=== PATIENT | female | born 1960 | race Caucasian/White ===

== ENCOUNTER 2020-07-06 07:27 | Outpatient (REF) | payer OTHER, SELFPAY ==
[2020-07-06 07:51] LABS: MANUAL DIFF FLAG NO
[2020-07-06 07:55] LABS: Basophils Percent Auto 0.5 % (0-2); Eosinophils Absolute Auto 0.2 X10*3/uL (0.0-0.4); Eosinophils Percent Auto 2.1 % (0-4); Hematocrit 41.5 % (37-47); Hemoglobin 13.3 g/dl (12.0-16.0); Imm Gran Abs Auto 0.03 X10*3/uL (0.00-0.03); Imm Gran Pct Auto 0.4 % (0.0-0.4); Lymphocytes Absolute Auto 3.1 X10*3/uL (1.2-4.9); Lymphocytes Percent Auto 37.3 % (20-40); Mean Corpuscular Hemoglobin 31.6 pg (27.0-33.0); Mean Corpuscular Volume 98.6 fL (80-98); Mean Platelet Volume 8.9 fL (9.4-12.3); Monocytes Absolute Auto 0.6 X10*3/uL (0.1-1.2); Neutrophils Absolute Auto 4.3 X10*3/uL (2.0-8.3); Neutrophils Percent Auto 52.7 % (45-73); Platelet Count 374 X10*3/uL (160-400); Red Blood Count 4.21 X10*6/uL (4.20-5.50); Red Cell Distribution Width 13.2 % (11.0-16.0); White Blood Count 8.2 X10*3/uL (4.8-10.8)
[2020-07-06 07:57] LABS: Glucose Urine UA NEG (NEG); Leukocyte Esterase Urine NEG (NEG); Nitrite Urine NEG (NEG); PH 7.5 (5.0-8.0); Urine Blood 1+ (NEG); Urine Ketones NEG (NEG); Urine Protein NEG (NEG-TRACE)
[2020-07-06 08:00] LABS: Appearance Urine CLEAR; Color Urine YELLOW
[2020-07-06 08:09] LABS: Amorphous Sediment Urine 1+ /LPF; Bacteria Urine 1+ /LPF; Granular Casts Urine 0-2 /LPF; RBC Urine 0-2 /HPF (0); Squamous Epithelial Cell Urine 1+ /LPF; WBC Urine 0 /HPF (0-4)
[2020-07-06 08:19] LABS: Alanine Aminotransferase 28 U/L (0-31); Albumin Level 4.4 g/dL (3.5-5.0); Alkaline Phosphatase 90 U/L (39-117); Anion Gap 11 (12-20); Aspartate Amino Transferase 23 U/L (5-31); Bilirubin Total 0.3 mg/dL (0.0-1.0); Blood Urea Nitrogen 21 mg/dL (9-16); Calcium 9.3 mg/dL (8.4-10.2); Carbon Dioxide 28 mmol/L (22-29); Chloride 103 mmol/L (96-108); Cholesterol 207 mg/dL; Estimated Glomerular Filt Rate > 60; Glucose Fasting 96 mg/dL (60-99); HDL Cholesterol 63 mg/dL; LDL Cholesterol Calculated 126 mg/dl; Sodium 138 mmol/L (135-145); Total Protein 6.8 g/dL (6.5-8.0); Triglycerides 93 mg/dL
[2020-07-06 08:41] LABS: TSH reflex Free T4 1.03 mIU/mL (0.32-4.0)
== END 2020-07-06 07:28 | disposition home or self-care (01) ==
LOC: HO.LAB 07:27
PROVIDERS: Visit Provider Internal Medicine
DX: E78.00 Pure hypercholesterolemia, unspecified (principal); Z00.00 Encounter for general adult medical examination without abnormal findings; F17.200 Nicotine dependence, unspecified, uncomplicated; E55.9 Vitamin D deficiency, unspecified
CPT/HCPCS: 36415; 80053; 80061; 81001; 82306; 84443; 85025

== ENCOUNTER 2021-06-25 09:04 | Outpatient (REF) | payer OTHER, SELFPAY ==
--- NOTE | ~2021-06-25 | US_ITS ---
EXAMINATION: US ABDOMEN COMPLETE CLINICAL INFORMATION: Liver disease, unspecified. COMPARISON: None TECHNIQUE: Real-time imaging of the abdominal viscera. FINDINGS: PANCREAS: Normal. ABDOMINAL AORTA: The proximal, mid, and distal segments are normal in caliber. INFERIOR VENA CAVA: Visualized portions are normal. LIVER: The liver is normal in size. The liver contour is normal. Parenchymal echogenicity is slightly increased. There is a 2 x 1.8 x 2.2 cm cyst in the right lobe of the liver. This is minimally complex with single thin septation and slightly irregularly-shaped. There is no intrahepatic biliary duct dilatation seen. GALLBLADDER: Gallbladder is normal in size. There is a 5 mm hyperechoic echogenic nonmobile nonshadowing density adjacent to the gallbladder wall suggestive of a gallbladder wall polyp. There is a second smaller similar-appearing 3 mm lesion. No definite gallstones are seen. The gallbladder wall does not appear thickened or edematous. There is no pericholecystic fluid. COMMON BILE DUCT: Normal in caliber measuring 0.5 cm in diameter. RIGHT KIDNEY: Normal. No hydronephrosis. No renal calculi or focal parenchymal lesions. The kidney measures 10.9 cm in maximum dimension. LEFT KIDNEY: Normal.. No hydronephrosis. No renal calculi or focal parenchymal lesions. The kidney measures 10.3 cm in maximum dimension. SPLEEN: Normal. The spleen measures 8.3 cm in maximum dimension. FREE FLUID: None. US/US abdomen complete IMPRESSION: Slightly echogenic liver probably representing fatty infiltration. 2 cm minimally complex cyst in the right lobe of the liver. Small gallbladder wall polyps.
== END 2021-06-25 09:05 | disposition home or self-care (01) ==
LOC: HO.US 09:04
PROVIDERS: PCP Internal Medicine; Visit Provider Internal Medicine
DX: K76.9 Liver disease, unspecified (principal)
CPT/HCPCS: 76700

== ENCOUNTER 2021-07-11 06:57 | Outpatient (REF) | payer OTHER, SELFPAY ==
[2021-07-11 07:17] LABS: MANUAL DIFF FLAG NO
[2021-07-11 08:09] LABS: Basophils Absolute Auto 0.1 X10*3/uL (0.0-0.2); Basophils Percent Auto 0.7 % (0-2); Eosinophils Absolute Auto 0.2 X10*3/uL (0.0-0.4); Eosinophils Percent Auto 2.8 % (0-4); Hematocrit 37.8 % (37.0-47.0); Hemoglobin 12.2 g/dl (12.0-16.0); Imm Gran Abs Auto 0.03 X10*3/uL (0.00-0.03); Imm Gran Pct Auto 0.4 % (0.0-0.4); Lymphocytes Absolute Auto 2.5 X10*3/uL (1.2-4.9); Lymphocytes Percent Auto 33.7 % (20-40); Mean Corpuscular HGB Conc 32.3 g/dl (31.0-35.0); Mean Corpuscular Hemoglobin 31.9 pg (27.0-33.0); Mean Corpuscular Volume 98.7 fL (80.0-98.0); Mean Platelet Volume 9.3 fL (9.4-12.3); Monocytes Absolute Auto 0.5 X10*3/uL (0.1-1.2); Neutrophils Absolute Auto 4.2 x10*3/uL (2.0-8.3); Neutrophils Percent Auto 55.4 % (45-73); Platelet Count 362 X10*3/uL (160-400); Red Blood Count 3.83 X10*6/uL (4.20-5.50); Red Cell Distribution Width 12.6 % (11.0-16.0); White Blood Count 7.5 X10*3/uL (4.8-10.8)
[2021-07-11 08:13] LABS: Appearance Urine HAZY; Color Urine YELLOW; Glucose Urine UA NEG (NEG); Leukocyte Esterase Urine NEG (NEG); Nitrite Urine NEG (NEG); UACC Culture Trigger NO; Urine Blood TRACE (NEG); Urine Ketones NEG (NEG); Urine Protein NEG (NEG-TRACE)
[2021-07-11 08:23] LABS: WBC Urine 0-2 /HPF (0-4)
[2021-07-11 08:24] LABS: Squamous Epithelial Cell Urine 1+ /LPF
[2021-07-11 08:30] LABS: Alanine Aminotransferase 18 U/L (0-31); Albumin Level 4.1 g/dL (3.5-5.0); Alkaline Phosphatase 96 U/L (39-117); Anion Gap 13 (12-20); Aspartate Amino Transferase 19 U/L (5-31); Bilirubin Total 0.2 mg/dL (0.0-1.0); Blood Urea Nitrogen 19 mg/dL (9-16); Calcium 9.6 mg/dL (8.4-10.2); Carbon Dioxide 27 mmol/L (22-29); Chloride 107 mmol/L (96-108); Cholesterol 213 mg/dL; Estimated Glomerular Filt Rate > 60; Glucose Fasting 96 mg/dL (60-99); HDL Cholesterol 70 mg/dL; LDL Cholesterol Calculated 127 mg/dl; Potassium 4.8 mmol/L (3.3-5.1); Sodium 142 mmol/L (135-145); Total Protein 6.5 g/dL (6.5-8.0); Triglycerides 81 mg/dL
[2021-07-11 08:53] LABS: Vitamin D 25-OH Total 37.5 ng/mL (>30)
== END 2021-07-11 06:58 | disposition home or self-care (01) ==
LOC: HO.LAB 06:57
PROVIDERS: PCP Internal Medicine; Visit Provider Internal Medicine
DX: Z00.00 Encounter for general adult medical examination without abnormal findings (principal); E78.00 Pure hypercholesterolemia, unspecified; E55.9 Vitamin D deficiency, unspecified
CPT/HCPCS: 36415; 80053; 80061; 81001; 82306; 84443; 85025

== ENCOUNTER 2021-07-18 16:24 | Outpatient (REF) | payer OTHER, SELFPAY ==
--- NOTE | ~2021-07-18 | XR_ITS ---
EXAMINATION: XR HAND, RIGHT CLINICAL INFORMATION: Pain in the fingers COMPARISON: None TECHNIQUE: PA, lateral, and oblique views of the right hand. FINDINGS: There is no fracture or dislocation. Alignment is maintained. There is mild joint space narrowing at the first interphalangeal joint with prominent osteophytes. Small osteophytes also noted at the second and third metacarpophalangeal joints. The soft tissues appear unremarkable. XR/XR hand RT 2V IMPRESSION: No acute abnormality. Degenerative changes noted at the first interphalangeal joint and second and third metacarpophalangeal joints.
== END 2021-07-18 16:25 | disposition home or self-care (01) ==
LOC: HO.XRAY 16:24
PROVIDERS: PCP Internal Medicine; Visit Provider Nurse Practitioner Family
DX: M79.644 Pain in right finger(s) (principal)
CPT/HCPCS: 73120

== ENCOUNTER 2022-10-24 07:36 | Outpatient (REF) | payer OTHER, SELFPAY ==
[2022-10-24 07:48] LABS: MANUAL DIFF FLAG NO
[2022-10-24 07:59] LABS: Basophils Absolute Auto 0.1 X10*3/uL (0.0-0.2); Basophils Percent Auto 0.5 % (0-2); Eosinophils Absolute Auto 0.2 X10*3/uL (0.0-0.4); Eosinophils Percent Auto 1.9 % (0-4); Hematocrit 43.5 % (37.0-47.0); Imm Gran Abs Auto 0.03 X10*3/uL (0.00-0.03); Imm Gran Pct Auto 0.3 % (0.0-0.4); Lymphocytes Percent Auto 30.6 % (20-40); Mean Corpuscular HGB Conc 32.2 g/dl (31.0-35.0); Mean Corpuscular Hemoglobin 30.8 pg (27.0-33.0); Mean Corpuscular Volume 95.8 fL (80.0-98.0); Mean Platelet Volume 9.1 fL (9.4-12.3); Monocytes Absolute Auto 0.5 X10*3/uL (0.1-1.2); Monocytes Percent Auto 5.2 % (2-11); Neutrophils Percent Auto 61.5 % (45-73); Platelet Count 379 X10*3/uL (160-400); Red Blood Count 4.54 X10*6/uL (4.20-5.50); Red Cell Distribution Width 12.9 % (11.0-16.0); White Blood Count 9.8 X10*3/uL (4.8-10.8)
[2022-10-24 08:18] LABS: Appearance Urine Cloudy; Color Urine Yellow; Glucose Urine UA Negative (Negative); Leukocyte Esterase Urine Moderate (2+) (Negative); Nitrite Urine Negative (Negative); Specific Gravity - Urine 1.025 (1.005-1.025); UMIC TRIGGER UACC YES; Urine Blood Small (1+) (Negative); Urine Ketones Trace mg/dL (Negative); Urine Protein Negative (Neg-Trace)
[2022-10-24 08:33] LABS: Bacteria Urine Trace (None Seen); Hyaline Casts Urine 0-2 /LPF (0-2); UACC Culture Trigger YES; WBC Urine 21-50 /HPF (0-5)
[2022-10-24 08:54] LABS: Alanine Aminotransferase 22 U/L (0-31); Albumin Level 4.4 g/dL (3.5-5.0); Alkaline Phosphatase 91 U/L (39-117); Anion Gap 13 (12-20); Aspartate Amino Transferase 21 U/L (5-31); Bilirubin Total 0.6 mg/dL (0.0-1.0); Blood Urea Nitrogen 26 mg/dL (9-16); C Reactive Protein < 0.10 mg/dL (< or = 0.50); Calcium 9.9 mg/dL (8.4-10.2); Carbon Dioxide 28 mmol/L (22-29); Chloride 104 mmol/L (96-108); Cholesterol 257 mg/dL; Estimated Glomerular Filt Rate > 60; Glucose Fasting 100 mg/dL (60-99); HDL Cholesterol 71 mg/dL; LDL Cholesterol Calculated 164 mg/dl; Potassium 4.3 mmol/L (3.3-5.1); Sodium 141 mmol/L (135-145); Triglycerides 114 mg/dL
[2022-10-24 09:12] LABS: TSH reflex Free T4 1.14 uIU/mL (0.32-4.0); Vitamin D 25-OH Total 39.8 ng/mL (>30)
[2022-10-24 09:16] LABS: Erythrocyte Sedimentation Rate 18 MM/HR (0-20)
== END 2022-10-24 07:37 | disposition home or self-care (01) ==
LOC: HO.LAB 07:36
PROVIDERS: PCP Internal Medicine; Visit Provider Internal Medicine
DX: Z00.00 Encounter for general adult medical examination without abnormal findings (principal); M51.36 Other intervertebral disc degeneration, lumbar region; E55.9 Vitamin D deficiency, unspecified; M79.7 Fibromyalgia; E78.00 Pure hypercholesterolemia, unspecified; R82.90 Unspecified abnormal findings in urine
CPT/HCPCS: 36415; 80053; 80061; 81001; 82306; 84443; 85025; 85652; 86140; 87086

== ENCOUNTER 2022-12-30 10:55 | Outpatient (REF) | payer OTHER, SELFPAY | END 2022-12-30 10:56 | disposition home or self-care (01) | LOC: HO.SH 10:55 | PROVIDERS: Visit Provider Internal Medicine | DX: Z01.118 Encounter for examination of ears and hearing with other abnormal findings (principal); H90.3 Sensorineural hearing loss, bilateral | CPT/HCPCS: 92557; 92567; 92700 ==

== ENCOUNTER 2023-10-08 07:41 | Outpatient (REF) | payer OTHER, SELFPAY ==
[2023-10-08 08:08] LABS: MANUAL DIFF FLAG NO
[2023-10-08 08:18] LABS: Basophils Percent Auto 0.4 % (0-2); Eosinophils Absolute Auto 0.2 X10*3/uL (0.0-0.4); Eosinophils Percent Auto 1.8 % (0-4); Hematocrit 41.8 % (37.0-47.0); Hemoglobin 13.5 g/dl (12.0-16.0); Imm Gran Abs Auto 0.03 X10*3/uL (0.00-0.03); Imm Gran Pct Auto 0.4 % (0.0-0.4); Lymphocytes Absolute Auto 3.1 X10*3/uL (1.2-4.9); Lymphocytes Percent Auto 37.6 % (20-40); Mean Corpuscular HGB Conc 32.3 g/dl (31.0-35.0); Mean Corpuscular Hemoglobin 31.7 pg (27.0-33.0); Mean Corpuscular Volume 98.1 fL (80.0-98.0); Mean Platelet Volume 8.7 fL (9.4-12.3); Monocytes Absolute Auto 0.5 X10*3/uL (0.1-1.2); Monocytes Percent Auto 5.8 % (2-11); Neutrophils Absolute Auto 4.5 x10*3/uL (2.0-8.3); Platelet Count 385 X10*3/uL (160-400); Red Blood Count 4.26 X10*6/uL (4.20-5.50); Red Cell Distribution Width 13.1 % (11.0-16.0); White Blood Count 8.3 X10*3/uL (4.8-10.8)
[2023-10-08 09:00] LABS: Appearance Urine Clear; Color Urine Yellow; Glucose Urine UA 100 mg/dL (Negative); Leukocyte Esterase Urine Negative (Negative); Nitrite Urine Negative (Negative); Specific Gravity - Urine >= 1.030 (1.005-1.025); UMIC TRIGGER UACC YES; Urine Blood Small (1+) (Negative); Urine Ketones Negative (Negative); Urine Protein 30 (1+) mg/dL (Neg-Trace)
[2023-10-08 09:13] LABS: Alanine Aminotransferase 17 U/L (0-31); Albumin Level 4.4 g/dL (3.5-5.0); Alkaline Phosphatase 84 U/L (39-117); Anion Gap 13 (12-20); Aspartate Amino Transferase 19 U/L (5-31); Bilirubin Total 0.5 mg/dL (0.0-1.0); Blood Urea Nitrogen 20 mg/dL (9-16); Calcium 10.2 mg/dL (8.4-10.2); Carbon Dioxide 27 mmol/L (22-29); Chloride 107 mmol/L (96-108); Cholesterol 229 mg/dL (<200); Estimated Glomerular Filt Rate > 60; Glucose Fasting 104 mg/dL (60-99); HDL Cholesterol 72 mg/dL (>40); LDL Cholesterol Calculated 136 mg/dL (<100); Potassium 4.4 mmol/L (3.3-5.1); Sodium 143 mmol/L (135-145); Total Protein 7.4 g/dL (6.5-8.0); Triglycerides 106 mg/dL (<150)
[2023-10-08 09:17] LABS: TSH reflex Free T4 1.15 uIU/mL (0.32-4.0); Vitamin D 25-OH Total 50.8 ng/mL (>30)
[2023-10-08 09:50] LABS: Bacteria Urine None Seen (None Seen); WBC Urine 0-5 /HPF (0-5)
[2023-10-08 09:51] LABS: Hyaline Casts Urine 0-2 /LPF (0-2)
== END 2023-10-08 07:42 | disposition home or self-care (01) ==
LOC: HO.LAB 07:41
PROVIDERS: PCP Internal Medicine; Visit Provider Internal Medicine
DX: Z00.00 Encounter for general adult medical examination without abnormal findings (principal); E78.00 Pure hypercholesterolemia, unspecified; E55.9 Vitamin D deficiency, unspecified; I10 Essential (primary) hypertension
CPT/HCPCS: 36415; 80053; 80061; 81001; 81003; 82306; 84443; 85025

== ENCOUNTER 2023-10-08 12:16 | Outpatient (AMB) | payer OTHER, SELFPAY ==
--- NOTE | 2023-10-08 12:22 | A.OFFPC_ITS ---
Vital Signs 10/08/23 12:23 10/08/23 12:30 Height 5 ft 6 in Weight 127 lb 8 oz BMI 20.6 BP 158/90 H 150/92 H Blood Pressure Location Lt brachial Lt brachial Position Sitting Sitting Respiration 17 Pulse 88 Pulse Source Pulse Oximeter Pulse Oximetry (%) 100 Oxygen Delivery Method Room Air Intake Visit Reasons: P.E Intake Note: Patient is here today for a physical. Dimensional Inspector Required: No Accompanied by: Self / Same As Patient Allergies No Known Allergies Allergy (Verified 10/08/23 12:45) Medication List - Last Reconciled 10/08/23 by Jose Santamaria MD lorazepam 0.5 mg PO BEDTIME PRN 30 days Tobacco use date assessed: 10/08/23 Fall risk assessment: No Falls in past year Last assessed Fall Risk: 10/08/23 Dental Screening Dental Screen Date: 10/08/23 Did you have a dental visit in the last 12 months?: Yes Did you have a dental problem in the last 6 months where you did not have access to dental care?: No Was dental information given to patient?: Patient has dentist HPI P.E HPI Details Patient comes in today for her annual physical examination States that she feels okay She denies any headaches or dizziness Denies any chest pains, no SOB No nausea/vomiting, no abdominal pain No change in bowel habits noted Denies any acute urinary symptoms States that her lower back has been feeling a lot better since she started seeing a chiropractor (Dr. Ward Bright) in [place], [place] about a year ago Needs her Lorazepam Rx refilled - states that she still has a lot of anxiety that is mostly due to her 's declining physical health and mental faculties She is also still taking care of her elderly father, whose cognition is also declining and taking care of him is becoming more and more challenging Had her follow up labs done earlier this morning - to discuss her results States that she is up-to-date with her annual mammogram (done at [facility] last year in December 2022) She is scheduled to see her sewing machine maintenance mechanic in December 2023 for her yearly exam and pap smear She last had her colonoscopy with Dr. Pollard in August 2018 and is now due for repeat colonoscopy (5 years) [facility] Medical History Anxiety Vitamin D deficiency Lumbar degenerative disc disease Pure hypercholesterolemia Surgical History Back pain with history of spinal surgery History of eye surgery History of surgery History of colonoscopy with polypectomy Neck pain with history of cervical spinal surgery History of microdiscectomy Family History Father No problems noted. Mother No problems noted. Other Substance abuse Social History Housing: House Alcohol intake: current Alcohol intake frequency: holidays/special occasions only Patient Tobacco Use Status: Former Tobacco user Cigarettes Per Day: 6 e-Cigarette/Vaping Use: Never Used Second Hand Smoke Exposure: Yes service: No Current occupational status: employed Cognitive needs: No Hearing needs: No Vision needs: Yes (Glasses) Questionnaire PHQ-9 Over the last 2 weeks, how often have you been bothered by any of the following problems? 1. Little interest or pleasure in doing things: not at all 2. Feeling down, depressed, or hopeless: not at all 3. Trouble falling or staying asleep, or sleeping too much: not at all 4. Feeling tired or having little energy: not at all 5. Poor appetite or overeating: not at all 6. Feeling bad about yourself - or that you are a failure or have let yourself or your family down: not at all 7. Trouble concentrating on things, such as reading the newspaper or watching television: not at all 8. Moving or speaking so slowly that other people could have noticed. Or the opposite - being so fidgety or restless that you have been moving around a lot more than usual: not at all 9. Thoughts that you would be better off or of hurting yourself in some way: not at all Total score: 0 Depression Screening Interpretation: Negative Depression Screening Done: Yes 29182 - PHQ-9 Billing: Yes Source: Developed by Drs. Nba Vasquez, Lore Christy, Toni Hinojosa and colleagues, with an educational cheryl from [employer]. Thrive Questionnaire Date Thrive assessed: 10/08/23 I am a: Patient What is your living situation today?: I have a steady place to live Within the past 12 months, did the food you bought not last and you didn't have the money to get more?: Never true Within the past 12 months, did you worry whether your food would run out before you got money to buy more?: Never true Do you have trouble paying for medicines?: No Do you have trouble getting transportation to medical appointments?: No Do you have trouble paying your heating and electricity bill?: No Do you have trouble taking care of your child, family member or friend?: No Do you have trouble with day-to-day activities such as bathing, preparing meals, shopping, managing finances, etc.?: No Are you currently unemployed and looking for a job?: No Are you interested in more education?: No Please select the resources that you would like help with: None Currently or been in a relationship where the following occur: no concerns reported THRIVE Score: 0 AUDIT C Alcohol Use Questionnaire (AUDIT-C) 1. How often do you have a drink containing alcohol?: Never 3. How often do you have six or more drinks on one occasion?: Never Total Score: 0 Score Reviewed/Action Taken: Yes ERIC-7 AMB Questionnaire ERIC-7 Date ERIC - 7 assessed: 10/08/23 Feeling nervous, anxious, or on edge: 3 = Nearly every day Not being able to stop or control worryin = Several days Worrying too much about different things: 3 = Nearly every day Trouble relaxin = Nearly every day Being so restless that it is hard to sit still: 1 = Several days Becoming easily annoyed or irritable: 0 = Not at all Feeling afraid as if something awful might happen: 1 = Several days Total ERIC-7 score (0-4 normal; 5-9 mild; 10-14 moderate; 15-21 severe): 12 Source: Developed by Drs. Nba Vasquez, Lore Christy, Toni Hinojosa and colleagues, with an educational cheryl from [employer]. ERIC-7 Assessment Billing ERIC-7 Assessment Tool: ERIC-7 Assessment 10559 Review of Systems Const Denies chills, Denies fatigue, Denies fever(s), Denies headache(s) and Denies malaise Eyes Denies blurry vision, Denies change in vision, Denies irritation and Denies itchy eyes ENT Denies dysphagia, Denies dizziness, Denies otalgia, Denies headache(s), Denies nasal congestion, Denies neck pain, Denies odynophagia, Denies sinus pain and Denies sore throat Card Denies chest pain, Denies rapid heart rate, Denies irregular heart rhythm, Denies palpitations and Denies dyspnea Resp Denies chest congestion, Denies cough, Denies dyspnea and Denies wheezing GI Denies abdominal pain, Denies bloating, Denies constipation, Denies dysphagia, Denies heartburn, Denies diarrhea, Denies nausea, Denies odynophagia and Denies vomiting Denies hematuria, Denies urinary frequency, Denies dysuria, Denies urinary incontinence and Denies urinary urgency Musc Reports back pain (on and off), Denies arthralgias, Denies joint swelling, Denies muscle weakness and Denies neck pain Skin/Breast Denies breast pain, Denies breast mass, Denies change in pigmentation, Denies lesions, Denies rash and Denies unusual bruising Neuro Denies dizziness, Denies headache(s) and Denies paresthesias Psych Reports anxiety (increasing lately) and Denies depression Endo Denies fatigue and Denies palpitations Bakari/Lymph Denies easy bruising Aller/Immun Denies itchy eyes and Denies wheezing Physical exam (Primary Care) Vital Signs: Last Vital Signs Pulse 88 10/08/23 12:23 Resp 17 10/08/23 12:23 BP 150/92 H 10/08/23 12:30 Pulse Ox 100 10/08/23 12:23 Oxygen Delivery Method Room Air 10/08/23 12:23 BMI result Body Mass Index 20.6 Tobacco/Smoking Status: Tobacco use Status Tobacco use date assessed 10/08/23 10/08/23 12:29 Patient Tobacco Use Status Former Tobacco user 10/08/23 12:29 e-Cigarette/Vaping Use Never Used 10/08/23 12:29 PHQ-9: PHQ-9 Score PHQ-9: Total score 0 10/08/23 12:30 Depression Screening Interpretation: Negative Thrive Assessment: Date of Thrive Assessment Date Thrive assessed 10/08/23 10/08/23 12:29 Currently or been in a relationship where the following occur: no concerns reported Const General: no acute distress, alert and awake Orientation/consciousness: patient oriented x3 HENMT Head: Yes normocephalic and Yes atraumatic Ears: external ears normal, TM's normal bilaterally and EAC's normal General nose exam: No nasal discharge present Face and sinus: Yes normal facial exam and Yes sinuses nontender Teeth and gingiva: dentition normal Throat: Yes posterior oropharynx normal and Yes tonsils normal (no TP congestion) Eyes Eyelids: Yes eyelids normal Conjunctivae: conjunctivae normal Pupils: Equal, round and reactive pupils present EOM: EOMs intact bilaterally Neck Neck: Yes no lymphadenopathy and Yes supple Thyroid: Thyroid normal Resp Auscultation: clear to auscultation bilaterally, no rales and no wheezes Cardio Rate: regular rate Rhythm: regular rhythm Heart sounds: no murmurs GI Palpation (GI): Soft to palpation, nontender and No hepatosplenomegaly present Auscultation: normal bowel sounds General: Yes no CVA tenderness Back/Spine/Pelvis Back: no CVA tenderness Thoracic/Lumbar Spine: lumbar spinal tenderness (mild) Skin Lesions: no lesions Rashes: no rashes Neuro General: patient oriented x3, moves all extremities, no focal motor deficits and CN's II-XI intact bilaterally Cranial nerves: Yes Equal, round and reactive pupils present Cognition (Neuro): normal cognition Gait exam (Neuro): Normal gait present Extrem General: Yes no clubbing, cyanosis or edema Results Reviewed Results Reviewed: Laboratory Tests 10/24/22 10/24/22 10/24/22 07:47 07:47 07:47 WBC Hgb Hct Plt Count Sodium Potassium Creatinine Estimated GFR Fasting Glucose Calcium AST ALT Triglycerides 114 Cholesterol LDL Cholesterol, Calc 164 HDL Cholesterol 71 25-OH Vitamin D Total TSH Ur Specific [place] Urine Protein Urine Glucose (UA) Urine Blood Urine Nitrite Ur Leukocyte Esterase 10/24/22 10/08/23 10/08/23 07:47 08:06 08:06 WBC 8.3 Hgb 13.5 Hct 41.8 Plt Count 385 Sodium 143 Potassium 4.4 Creatinine 0.85 Estimated GFR > 60 Fasting Glucose 104 H Calcium 10.2 AST 19 ALT 17 Triglycerides 106 Cholesterol 257 229 H LDL Cholesterol, Calc 136 H HDL Cholesterol 25-OH Vitamin D Total TSH Ur Specific [place] Urine Protein Urine Glucose (UA) Urine Blood Urine Nitrite Ur Leukocyte Esterase 10/08/23 10/08/23 10/08/23 08:06 08:06 08:10 WBC Hgb Hct Plt Count Sodium Potassium Creatinine Estimated GFR Fasting Glucose Calcium AST ALT Triglycerides Cholesterol LDL Cholesterol, Calc HDL Cholesterol 72 25-OH Vitamin D Total 50.8 TSH 1.15 Ur Specific [place] >= 1.030 H Urine Protein 30 (1+) H Urine Glucose (UA) Urine Blood Urine Nitrite Ur Leukocyte Esterase 10/08/23 08:10 WBC Hgb Hct Plt Count Sodium Potassium Creatinine Estimated GFR Fasting Glucose Calcium AST ALT Triglycerides Cholesterol LDL Cholesterol, Calc HDL Cholesterol 25-OH Vitamin D Total TSH Ur Specific [place] Urine Protein Urine Glucose (UA) 100 H Urine Blood Small (1+) H Urine Nitrite Negative Ur Leukocyte Esterase Negative Assessment and Plan Assessment & Plan (1) Annual physical exam: Code(s): Z00.00 - Encounter for general adult medical examination without abnormal findings Plan: Results of her labs done earlier this morning reviewed and discussed with patient She is up-to-date with her annual mammogram (last done at [facility] in December 2022) Is scheduled to see her sewing machine maintenance mechanic in December 2023 for her yearly exam She is now due for repeat colonoscopy (2) Pure hypercholesterolemia: Code(s): E78.00 - Pure hypercholesterolemia, unspecified Plan: She is advised that her cholesterol levels have improved significantly from previous but they are still elevated and needs to continue improving Reinforced low-cholesterol diet Will recheck her fasting lipids and labs in 6 months for follow up (3) Elevated blood pressure reading: Code(s): R03.0 - Elevated blood-pressure reading, without diagnosis of hypertension Plan: Her blood pressure is again high today; her BP was normal/much better controlled back in January 2023 Advised again that her elevated BP readings every now and then are most likely multifactorial, including due to her pain/sciatica and anxiety/stress Reinforced low sodium diet Patient is reminded to continue monitoring her blood pressure regularly - goal is systolic BP of 120 mm or less (4) Lumbar degenerative disc disease: Comment: S/P lumbar spine surgery with Dr. Garcia in 07/2012 Code(s): M51.36 - Other intervertebral disc degeneration, lumbar region Plan: Reinforced activity and weight lifting restrictions She was previously sent for a repeat lumbar spine MRI due to her increasing pain (right sciatica) and radiation of pain down her right leg but this was declined by insurance States that she has been seeing her chiropractor (Dr. Ward Bright) in [place], [place] for about a year now and he has helped her a lot with her lower back pain - states that her lower back has not really been bothering her too much lately (5) Right lumbar radiculopathy: Code(s): M54.16 - Radiculopathy, lumbar region Plan: Repeat MRI of the lumbar spine ordered recently was declined by insurance; states that her low back pain and radicular symptoms seem to have subsided a lot recently so she does not wish to pursue this further at this time Will consider referring her back to Neurosurgery only if her back symptoms start flaring up uncontrollably again (6) 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: Code(s): M47.812 - Spondylosis without myelopathy or radiculopathy, cervical region Plan: States that her neck pain has also been mostly manageable and she does not need any interventions at this time (7) Osteoarthritis of right hand: Code(s): M19.041 - Primary osteoarthritis, right hand Qualifiers: Osteoarthritis type: primary Qualified Code(s): M19.041 - Primary osteoarthritis, right hand Plan: Right hand x-rays done in July 2021 revealed (+) OA changes in the right hand and fingers Follow up with orthopedics as scheduled (8) Vitamin D deficiency: Code(s): E55.9 - Vitamin D deficiency, unspecified Plan: Corrected on her recent labs (9) Anxiety: Code(s): F41.9 - Anxiety disorder, unspecified Plan: Continue Lorazepam 0.5 mg Q HS PRN - Rx refilled Was on Bupropion XL 150 mg Q AM in the past but she took herself off the Rx when she felt that the medication was making her feel angry often - reports no significant increase or worsening of her anxiety since coming off the Rx (10) Colon cancer screening: Code(s): Z12.11 - Encounter for screening for malignant neoplasm of colon Plan: Will refer her back to GI for repeat colonoscopy Plan Follow up in 6 months Orders: Orders Comprehensive [place]. 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
[2023-10-08 12:23] VITALS: BP 158/90; PULSE 88; RESP 17; O2SAT 100; BMI 20.6
[2023-10-08 12:30] VITALS: BP 150/92
== END 2023-10-08 13:08 | disposition home or self-care (01) ==
PROVIDERS: PCP Internal Medicine; Visit Provider Internal Medicine
DX: Z00.00 Encounter for general adult medical examination without abnormal findings (principal); E78.00 Pure hypercholesterolemia, unspecified; R03.0 Elevated blood-pressure reading, without diagnosis of hypertension; M51.36 Other intervertebral disc degeneration, lumbar region; M54.16 Radiculopathy, lumbar region; M47.812 Spondylosis without myelopathy or radiculopathy, cervical region; M19.041 Primary osteoarthritis, right hand; E55.9 Vitamin D deficiency, unspecified; F41.9 Anxiety disorder, unspecified; Z12.11 Encounter for screening for malignant neoplasm of colon
CPT/HCPCS: 99396

== ENCOUNTER → 2024-01-27 08:24 | Outpatient (BNVA) | payer MEDICARE, SELFPAY | PROVIDERS: PCP Internal Medicine; Visit Provider Nurse Practitioner ==

== ENCOUNTER 2024-04-20 05:56 | Outpatient (REF) | payer MEDICARE, SELFPAY ==
[2024-04-20 07:51] LABS: Alanine Aminotransferase 16 U/L (0-31); Albumin Level 4.6 g/dL (3.5-5.0); Alkaline Phosphatase 80 U/L (39-117); Anion Gap 13 (12-20); Aspartate Amino Transferase 19 U/L (5-31); Bilirubin Total 0.4 mg/dL (0.0-1.0); Blood Urea Nitrogen 22 mg/dL (9-16); Calcium 10.5 mg/dL (8.4-10.2); Carbon Dioxide 28 mmol/L (22-29); Chloride 107 mmol/L (96-108); Cholesterol 206 mg/dL (<200); Estimated Glomerular Filt Rate > 60; Glucose Fasting 100 mg/dL (60-99); HDL Cholesterol 74 mg/dL (>40); LDL Cholesterol Calculated 110 mg/dL (<100); Potassium 4.7 mmol/L (3.3-5.1); Sodium 143 mmol/L (135-145); Total Protein 7.4 g/dL (6.5-8.0); Triglycerides 113 mg/dL (<150)
[2024-04-20 08:09] LABS: Appearance Urine Clear; Color Urine Yellow; Glucose Urine UA Negative (Negative); Leukocyte Esterase Urine Moderate (2+) (Negative); Nitrite Urine Negative (Negative); PH 5.5 (5.0-9.0); Specific Gravity - Urine 1.025 (1.005-1.025); UMIC TRIGGER UACC YES; Urine Blood Small (1+) (Negative); Urine Ketones 15 mg/dL (Negative); Urine Protein Trace mg/dL (Neg-Trace)
[2024-04-20 08:14] LABS: Bacteria Urine None Seen (None Seen); Hyaline Casts Urine 0-2 /LPF (0-2); UACC Culture Trigger YES
== END 2024-04-20 05:57 | disposition home or self-care (01) ==
LOC: HO.LAB 05:56
PROVIDERS: PCP Internal Medicine; Visit Provider Internal Medicine
DX: E78.00 Pure hypercholesterolemia, unspecified (principal); R30.0 Dysuria
CPT/HCPCS: 36415; 80053; 80061; 81001; 81003; 87086

== ENCOUNTER 2024-04-21 09:37 | Outpatient (AMB) | payer MEDICARE, SELFPAY ==
[2024-04-21 10:01] VITALS: BP 148/86; PULSE 66; O2SAT 98; BMI 20.7
--- NOTE | 2024-04-21 10:01 | MHC.PC.OV ---
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 Accompanied by: Self / Same As Patient Allergies No Known Allergies Allergy (Verified 04/21/24 10:02) Tobacco use date assessed: 04/21/24 Last assessed Fall Risk: 04/21/24 Dental Screening Dental Screen Date: 04/21/24 HPI hyperlipidemia, anxiety HPI Details Patient comes in today for her follow up visit States that she hurt and twisted her left knee a couple of months ago Recalls that her knee swelled up initially but this gradually subsided over a few days States that the pain in her knee has also been slowly decreasing but she is concerned now that it has been about 2 months since she got hurt and is currently still experiencing recurrent pain in her knee, especially with weight-bearing and when she is walking States that she has been icing her knee daily at night and has been wearing a compression sleeve on her knee during the day, which she states have been helping Sttaes that she feels okay otherwise She denies any headaches or dizziness Denies any chest pains, no SOB No nausea/vomiting, no abdominal pain No change in bowel habits noted States that her BP was at 120/80 mm earlier this morning and at 116/72 mm just before she left the house to get here It is again up at 148/86 mm when she was triaged a while ago for her appointment today [facility] Medical History (Updated 04/21/24 @ 12:21 by Jose Santamaria MD) White coat syndrome without diagnosis of hypertension Anxiety Vitamin D deficiency Lumbar degenerative disc disease Pure hypercholesterolemia Surgical History Back pain with history of spinal surgery History of eye surgery History of surgery History of colonoscopy with polypectomy Neck pain with history of cervical spinal surgery History of microdiscectomy Family History Father No problems noted. Mother No problems noted. Other Substance abuse Social History Housing: House Alcohol intake: current Alcohol intake frequency: holidays/special occasions only Patient Tobacco Use Status: Former Tobacco user Cigarettes Per Day: 6 e-Cigarette/Vaping Use: Never Used Second Hand Smoke Exposure: Yes service: No Current occupational status: employed Cognitive needs: No Hearing needs: No Vision needs: Yes (Glasses) Questionnaire PHQ-9 Over the last 2 weeks, how often have you been bothered by any of the following problems? 1. Little interest or pleasure in doing things: not at all 2. Feeling down, depressed, or hopeless: not at all 3. Trouble falling or staying asleep, or sleeping too much: not at all 4. Feeling tired or having little energy: not at all 5. Poor appetite or overeating: not at all 6. Feeling bad about yourself - or that you are a failure or have let yourself or your family down: not at all 7. Trouble concentrating on things, such as reading the newspaper or watching television: not at all 8. Moving or speaking so slowly that other people could have noticed. Or the opposite - being so fidgety or restless that you have been moving around a lot more than usual: not at all 9. Thoughts that you would be better off or of hurting yourself in some way: not at all Total score: 0 Depression Screening Interpretation: Negative Depression Screening Done: Yes 89909 - PHQ-9 Billing: Yes Source: Developed by Drs. Nba Vasquez, Lore Christy, Toni Hinojosa and colleagues, with an educational cheryl from [email or web address]. Thrive Questionnaire Date Thrive assessed: 04/21/24 I am a: Patient What is your living situation today?: I have a steady place to live Within the past 12 months, did the food you bought not last and you didn't have the money to get more?: Never true Within the past 12 months, did you worry whether your food would run out before you got money to buy more?: Never true Do you have trouble paying for medicines?: No Do you have trouble getting transportation to medical appointments?: No Do you have trouble paying your heating and electricity bill?: No Do you have trouble taking care of your child, family member or friend?: No Do you have trouble with day-to-day activities such as bathing, preparing meals, shopping, managing finances, etc.?: No Are you currently unemployed and looking for a job?: No Are you interested in more education?: No Please select the resources that you would like help with: None Currently or been in a relationship where the following occur: No concerns reported THRIVE Score: 0 AUDIT C Alcohol Use Questionnaire (AUDIT-C) 1. How often do you have a drink containing alcohol?: Never 3. How often do you have six or more drinks on one occasion?: Never Total Score: 0 Score Reviewed/Action Taken: Yes ERIC-7 AMB Questionnaire ERIC-7 Date ERIC - 7 assessed: 04/21/24 Feeling nervous, anxious, or on edge: 3 = Nearly every day Not being able to stop or control worryin = Several days Worrying too much about different things: 3 = Nearly every day Trouble relaxin = Nearly every day Being so restless that it is hard to sit still: 1 = Several days Becoming easily annoyed or irritable: 0 = Not at all Feeling afraid as if something awful might happen: 1 = Several days Total ERIC-7 score (0-4 normal; 5-9 mild; 10-14 moderate; 15-21 severe): 12 Source: Developed by Drs. Nba Vasquez, Lore Christy, Toni Hinojosa and colleagues, with an educational cheryl from [email or web address]. ERIC-7 Assessment Billing ERIC-7 Assessment Tool: ERIC-7 Assessment 84875 Review of Systems Const Denies chills, Denies difficulty sleeping, Denies fatigue, Denies fever(s) and Denies headache(s) ENT Denies dysphagia, Denies dizziness, Denies otalgia, Denies headache(s), Denies neck pain, Denies odynophagia and Denies sore throat Card Denies chest pain, Denies palpitations and Denies dyspnea Resp Denies cough and Denies dyspnea GI Denies abdominal pain, Denies constipation, Denies dysphagia, Denies heartburn, Denies diarrhea, Denies nausea, Denies odynophagia and Denies vomiting Denies difficulty voiding, Denies nocturia, Denies dysuria and Denies urinary urgency Musc Denies back pain, Reports arthralgias (left knee - see HPI) and Denies neck pain Neuro Denies dizziness and Denies headache(s) Psych Reports anxiety (better controlled ) and Denies depression Endo Denies fatigue and Denies palpitations Physical exam (Primary Care) Vital Signs: Last Vital Signs Pulse 66 04/21/24 10:01 BP 148/86 H 04/21/24 10:01 Pulse Ox 98 04/21/24 10:01 Oxygen Delivery Method Room Air 04/21/24 10:01 BMI result Body Mass Index 20.7 Tobacco/Smoking Status: Tobacco use Status Tobacco use date assessed 04/21/24 04/21/24 10:04 Patient Tobacco Use Status Former Tobacco user 04/21/24 10:04 e-Cigarette/Vaping Use Never Used 04/21/24 10:04 PHQ-9: PHQ-9 Score PHQ-9: Total score 0 04/21/24 10:40 Depression Screening Interpretation: Negative Thrive Assessment: Date of Thrive Assessment Date Thrive assessed 04/21/24 04/21/24 10:04 Currently or been in a relationship where the following occur: No concerns reported Const General: no acute distress and alert HENMT Ears: TM's normal bilaterally and EAC's normal Throat: Yes posterior oropharynx normal and Yes tonsils normal (no TP congestion) Neck Neck: Yes no lymphadenopathy and Yes supple Thyroid: Thyroid normal Resp Auscultation: clear to auscultation bilaterally, no rales and no wheezes Cardio Rate: regular rate Rhythm: regular rhythm Heart sounds: no murmurs GI Palpation (GI): Soft to palpation and nontender Auscultation: normal bowel sounds General: Yes no CVA tenderness Back/Spine/Pelvis Back: no CVA tenderness Thoracic/Lumbar Spine: lumbar spinal tenderness (mild) Skin Rashes: no rashes Extrem General: Yes no clubbing, cyanosis or edema Left lower extremity: knee Details: tenderness Location: of the medial joint line and of the pre-patellar area and normal ROM; no swelling Assessment and Plan Assessment & Plan (1) Elevated blood pressure reading: Code(s): R03.0 - Elevated blood-pressure reading, without diagnosis of hypertension Plan: She appears to have the classic WHITE COAT SYNDROME, as her BP was at 120/80 mm earlier this morning and at 116/72 mm just before she left the house to get here It is up at 148/86 mm when she was triaged a while ago for her appointment today Reinforced low sodium diet Patient is advised to just continue monitoring her blood pressure every now and then (2) Pure hypercholesterolemia: Code(s): E78.00 - Pure hypercholesterolemia, unspecified Plan: Reinforced low-cholesterol diet Will recheck her fasting lipids and labs in 6 months for follow up (3) Left knee pain: Code(s): M25.562 - Pain in left knee Qualifiers: Chronicity: unspecified Qualified Code(s): M25.562 - Pain in left knee Plan: S/P injury over a couple of months ago As she is still experiencing lingering left knee pain a couple of months after she got hurt, will send her for left knee x-rays for further evaluation (4) Lumbar degenerative disc disease: Comment: S/P lumbar spine surgery with Dr. Garcia in 07/2012 Code(s): M51.36 - Other intervertebral disc degeneration, lumbar region Plan: Reinforced activity and weight lifting restrictions She was previously sent for a repeat lumbar spine MRI due to her increasing pain (right sciatica) and radiation of pain down her right leg but this was declined by insurance States that she has been seeing her chiropractor (Dr. 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: Code(s): M47.812 - Spondylosis without myelopathy or radiculopathy, cervical region Plan: States that her neck pain has also been mostly manageable and she does not need any intervention(s) at this time (7) Osteoarthritis of right hand: Code(s): M19.041 - Primary osteoarthritis, right hand Qualifiers: Osteoarthritis type: primary Qualified Code(s): M19.041 - Primary osteoarthritis, right hand Plan: Right hand x-rays done in July 2021 revealed (+) OA changes in the right hand and fingers Follow up with orthopedics as scheduled (8) Vitamin D deficiency: Code(s): E55.9 - Vitamin D deficiency, unspecified Plan: Continue OTC Vitamin D supplements daily (9) Anxiety: Code(s): F41.9 - Anxiety disorder, unspecified Plan: Continue Lorazepam 0.5 mg Q HS PRN She was on Bupropion XL 150 mg Q AM in the past but she took herself off the Rx when she felt that the medication was making her feel angry often - reports no significant increase or worsening of her anxiety since coming off the Rx Plan To return in 6 months for her next annual physical examination Orders: Orders Lipid Panel 6 Months E78.00 - Pure hypercholesterolemia, unspecified, Z00.00 - Encounter for general adult medical examination without abnormal findings Vitamin D 25-OH Total 6 Months E55.9 - Vitamin D deficiency, unspecified, Z00.00 - Encounter for general adult medical examination without abnormal findings XR knee LT 4V Today M25.562 - Pain in left knee Complete Blood Count Auto Diff 6 Months D64.9 - Anemia, unspecified, Z00.00 - Encounter for general adult medical examination without abnormal findings [facility] [place]. Panel Fast 6 Months E78.00 - Pure hypercholesterolemia, unspecified, Z00.00 - Encounter for general adult medical examination without abnormal findings TSH reflex Free T4 6 Months E78.00 - Pure hypercholesterolemia, unspecified, Z00.00 - Encounter for general adult medical examination without abnormal findings UA CC w/rflx Micro + Cult 6 Months R30.0 - Dysuria, Z00.00 - Encounter for general adult medical examination without abnormal findings Hemoglobin A1c 6 Months R73.01 - Impaired fasting glucose, Z00.00 - Encounter for general adult medical examination without abnormal findings Coding Level of Care Code Est Pt Level 4 (66929) Diagnoses Elevated blood pressure reading R03.0 Pure hypercholesterolemia E78.00 Left knee pain, unspecified chronicity M25.562 Chronicity: unspecified Lumbar degenerative disc disease M51.36 Right lumbar radiculopathy M54.16 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
== END 2024-04-21 10:49 | disposition home or self-care (01) ==
PROVIDERS: PCP Internal Medicine; Visit Provider Internal Medicine
DX: E78.00 Pure hypercholesterolemia, unspecified (principal); R03.0 Elevated blood-pressure reading, without diagnosis of hypertension; M25.562 Pain in left knee; M51.36 Other intervertebral disc degeneration, lumbar region; M54.16 Radiculopathy, lumbar region; M47.812 Spondylosis without myelopathy or radiculopathy, cervical region; M19.041 Primary osteoarthritis, right hand; E55.9 Vitamin D deficiency, unspecified; F41.9 Anxiety disorder, unspecified
CPT/HCPCS: 99214

== ENCOUNTER 2024-04-21 10:56 | Outpatient (REF) | payer MEDICARE, SELFPAY ==
--- NOTE | ~2024-04-21 | XR_ITS ---
EXAMINATION: XR KNEE, LEFT CLINICAL INFORMATION: Left knee pain following twisting injury. COMPARISON: Left knee radiographs dated 04/07/2007. TECHNIQUE: Four views of the left knee. FINDINGS: Hwlearup-bx-ohtrtv medial compartment joint space narrowing. Tricompartmental marginal osteophytes. No osseous erosion. No fracture or dislocation. Small joint effusion. Superior patellar enthesophytes. Atherosclerotic calcifications. XR/XR knee LT 4V IMPRESSION: Ovulhbcd-pt-hadbfw medial as well as mild patellofemoral and lateral compartment osteoarthritis. Small joint effusion. Electronically signed by: Davey Auguste MD 04/27/2024 01:43 PM EDT
== END 2024-04-21 10:57 | disposition home or self-care (01) ==
LOC: HO.XRAY 10:56
PROVIDERS: PCP Internal Medicine; Visit Provider Internal Medicine
DX: M25.562 Pain in left knee (principal)
CPT/HCPCS: 73564

== ENCOUNTER 2024-07-28 09:16 | Day surgery (SDC) | payer MEDICARE, SELFPAY ==
--- NOTE | 2024-07-27 10:51 | HO.ANESPROP2 ---
Documented by User: Valentine Youssef NP 07/27/24 10:51 HPI - Anesthesia Eval Consult details Narrative: 64yo F for Colonoscopy PMFSH Active Problems Active Problems: All Active Problems White coat syndrome without diagnosis of hypertension (Acute) Left knee pain (Acute) Pre-op examination (Acute) Tubular adenoma of colon (Acute) Colon cancer screening (Acute) Hearing loss (Acute) Elevated blood pressure reading (Acute) Osteoarthritis of right hand (Acute) Right lumbar radiculopathy (Acute) Pain of right thumb (Acute) Annual physical exam (Acute) Hepatic lesion (Acute) Anxiety (Acute) Vitamin D deficiency (Acute) 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 Mother No problems noted. Other Substance abuse Surgical History Surgical History Back pain with history of spinal surgery History of eye surgery History of surgery History of colonoscopy with polypectomy Neck pain with history of cervical spinal surgery History of microdiscectomy Social History Social History Housing: House Alcohol intake: current Alcohol intake frequency: holidays/special occasions only Patient Tobacco Use Status: Former Tobacco user Cigarettes Per Day: 6 e-Cigarette/Vaping Use: Never Used Second Hand Smoke Exposure: Yes Use of substances other than those prescribed or required for medical reasons: No Are you DNR?: No Advance Directives: No Advance Directives Information Provided: Yes Recently lost weight without trying: No Nutrition Risks: No Nutritional Risk Patient : No service: No Current occupational status: employed Cognitive needs: No Hearing needs: No Vision needs: Yes (Glasses) Meds Allergies Allergy/AdvReac Type Severity Reaction Status Date / Time No Known Allergies Allergy Verified 04/21/24 10:02 Home Medications ?Medication ?Instructions ?Recorded ?Confirmed ?Last Taken ?Type calcium 650 mg-vitamin D3 12.5 tab PO 01/27/24 Unknown History mcg-vitamin K 40 mcg chewable tablet (Viactiv) uiaooezo-hil-hzneb ac 400 tab PO 01/27/24 Unknown History mcg-calcium carb 500 mg-vit K1 20 mcg tablet (Women's 50 Plus Multivitamin) Assessment and Plan Assessment Anesthesia Assessment: Chart Reviewed Documented by User: Kimberly Gaytan MD 07/28/24 11:37 PMFSH Past Medical History Medical History White coat syndrome without diagnosis of hypertension Anxiety Vitamin D deficiency Lumbar degenerative disc disease Pure hypercholesterolemia Family History Family History Father No problems noted. Mother No problems noted. Other Substance abuse Family history of problems with anesthesia: No Surgical History Surgical History Back pain with history of spinal surgery History of eye surgery History of surgery History of colonoscopy with polypectomy Neck pain with history of cervical spinal surgery History of microdiscectomy History of Problems with Anesthesia: No Social History Social History Housing: House Alcohol intake: current Alcohol intake frequency: holidays/special occasions only Patient Tobacco Use Status: Former Tobacco user Cigarettes Per Day: 6 e-Cigarette/Vaping Use: Never Used Second Hand Smoke Exposure: Yes Use of substances other than those prescribed or required for medical reasons: No Are you DNR?: No Advance Directives: No Advance Directives Information Provided: Yes Recently lost weight without trying: No Nutrition Risks: No Nutritional Risk Patient : No service: No Current occupational status: employed Cognitive needs: No Hearing needs: No Vision needs: Yes (Glasses) Meds Allergies Allergy/AdvReac Type Severity Reaction Status Date / Time No Known Allergies Allergy Verified 04/21/24 10:02 Home Medications ?Medication ?Instructions ?Recorded ?Confirmed ?Last Taken ?Type calcium 650 mg-vitamin D3 12.5 tab PO 01/27/24 Unknown History mcg-vitamin K 40 mcg chewable tablet (Viactiv) tucrrinx-xwv-yflcf ac 400 tab PO 01/27/24 Unknown History mcg-calcium carb 500 mg-vit K1 20 mcg tablet (Women's 50 Plus Multivitamin) Exam Height,Weight and Vital Signs: Height 5 ft 6 in Weight 56.812 kg Vital Signs Temp Pulse Resp BP Pulse Ox O2 Del Method 07/28/24 10:42 97.1 F 82 16 111/69 97 Room Air Airway Mallampati Class: II TM Dist: >3cm Neck ROM: Full Loose/Missing/Broken Teeth: Yes (Some broken. Awaiting extraction of all teeth. Denies loose) Heart: RRR Lungs: CTAB Assessment and Plan Assessment Anesthesia Assessment: Anesthesia Plan Discussed and Chart Reviewed Final Anesthetic Review Family History of Problems with Anesthesia: No History of Problems with Anesthesia: No NPO: Yes ASA Class: II Final Preanesthetic Review: No Changes in Pt Med Stat, Meds/Allgs Chart Reviewed, Consent Obtained/Reviewed and Anes Risks/Benef Reviewed Patient Risk: Low Procedure Risk: Low Assessment/Block/Sedation in SS: Assess/Block/Sedation-SS Anesthetic Plan Anesthetic Plan: TIVA Disposition: Standard PACU
--- NOTE | 2024-07-28 09:39 | MHC.SHP ---
Pre-Procedural Eval Section A - 24 Hr Update-Section A only Date of Service: 07/28/24 The patient is an INPATIENT: No The patient has been examined within 24 hours of the surgical procedure. The History & Physical has been completed within 30 days and I have reviewed it.: No Section B - Complete if H&P > 30 days Chief Complaint: Surveillance of colon polyps Relevant Family History (Specify if Yes): No Relevant Social History: Tobacco Use (Former smoker) Present Medications: see Short Stay Collaborative assessment Medical History: Significant History (Anxiety Vitamin D deficiency Lumbar degenerative disc disease Pure hypercholesterolemia) History of Previous Operations: Relevant previous surgery/procedure and date(s) (Back pain with history of spinal surgery History of eye surgery History of surgery History of colonoscopy with polypectomy Neck pain with history of cervical spinal surgery History of microdiscectomy) Allergies: Allergies Allergy/AdvReac Type Severity Reaction Status Date / Time No Known Allergies Allergy Verified 04/21/24 10:02 Review of Systems Sugical H&P ROS: Negative: Constitution, Cardiovascular, Respiratory and Gastrointestinal Exam Surgical H&P Exam: Normal: Heart, Normal: Lungs, Normal: Extremities and Normal: Abdomen Plan Diagnosis/Plan: Unchanged I have reviewed the history and physical and performed a pertinent physical examination on my patient. No changes have occurred unless specified. Time Spent With Patient Time: Total time managing care of this patient today ____ minutes.
[2024-07-28 10:21] VITALS: BMI 20.2
[2024-07-28 10:42] VITALS: BP 111/69; PULSE 82; RESP 16; TEMP 36.2; O2SAT 97
[2024-07-28] MEDS: Lactated Ringers 1,000 ML 100 ML IVCONT (10:52)
--- NOTE | 2024-07-28 12:16 | HO.OPN-COLON ---
Colonoscopy Operative Note Operative Note Date of Service: 07/28/24 Narrative: COLONOSCOPY TILL CECUM WITH SNARE POLYPECTOMY Pre-op diagnosis: Surveillance for colon polyps. Post-op diagnosis:? Colon polyps, Diverticulosis, hemorrhoids Endoscopist:? Coby Monae MD Anesthesia:?MAC Consent: Indications for the procedure and potential complications of bleeding, perforation, reaction to medications and missed diagnosis were discussed with the patient and informed consent was obtained. Instrument: Olympus PCF H 190 L variable stiffness pediatric colonoscope Monitoring: Vital signs and clinical assessment, intermittent blood pressure monitoring, continuous EKG monitoring, Pulse oximetry and Carbon Dioxide monitoring were done throughout the procedure. Please see anesthesia flowsheet. Colon withdrawl time was 15 minutes. Procedure: The patient was placed in the left lateral decubitis position and pre-procedure medications were administered. After a digital rectal examination of the ano-rectum, the video colonoscope was inserted into the rectum and advanced through the colon to the cecum. The colonoscope was slowly withdrawn in a retrograde panoramic fashion and the colon mucosa was carefully examined including a retroflexed view of the rectum. Findings and interventions are described below. Procedure Difficulty: without difficulty Findings: Terminal Ileum: Not evaluated Cecum: Normal Ascending Colon: A 7-8 mm sessile polyp in the proximal AC - inadvertently removed with a cold snare. Some bleeding noted at polypectomy site which was controlled with cautery using the snare tip. A 10-12 mm sessile polyp in the mid AC - removed with a hot snare. Two 3-5 mm sessile polyps in the mid AC - removed with a cold snare. Transverse Colon: Normal Descending Colon: Moderate diverticulosis Sigmoid Colon: Severe diverticulosis Rectum: Normal Ano-rectum: Moderate internal hemorrhoids Colon preparation: Good after copious irrigation. [place] Bowel Preparation Scale Right colon; 2 Transverse colon: 2 Left colon; 2 (0 = Unprepared colon segment with mucosa not seen due to solid stool that cannot be cleared. 1 = Portion of mucosa of the colon segment seen, but other areas of the colon segment not well seen due to staining, residual stool and/or opaque liquid. 2 = Minor amount of residual staining, small fragments of stool and/or opaque liquid, but mucosa of colon segment seen well. 3 = Entire mucosa of colon segment seen well with no residual staining, small fragments of stool or opaque liquid) Impression and Post Procedure Diagnosis: Colonoscopy Findings: Four small to medium sized polyps were removed Moderate diverticulosis seen in the left colon Moderate hemorrhoids on retroflexed exam. Plan: Pt has a FU appointment on 08/17/24 with Sofía Packer NP. Repeat Colonoscopy in 3-5 years if polyps are adenomatous and due to a history of adenomatous colon polyps. Above findings were reviewed with the patient and relevant handouts were given and the discharge area.
[2024-07-28 12:19] VITALS: BP 104/64; PULSE 84; RESP 18; TEMP 36.2; O2SAT 97
[2024-07-28 12:34] VITALS: BP 127/65; PULSE 69; RESP 16; TEMP 36.2; O2SAT 99
== END 2024-07-28 13:30 | disposition home or self-care (01) ==
PROVIDERS: PCP Internal Medicine; Visit Provider Internal Medicine Gastroenterology
PROC: 0DJD8ZZ Inspection of Lower Intestinal Tract, Via Natural or Artificial Opening Endoscopic (ICD-10-PCS; CPT 45378; principal; 2024-07-28 10:20)
DX: Z12.11 Encounter for screening for malignant neoplasm of colon (principal); Z86.0101 Personal history of adenomatous and serrated colon polyps; D12.2 Benign neoplasm of ascending colon; K57.30 Diverticulosis of large intestine without perforation or abscess without bleeding; K64.8 Other hemorrhoids; E78.00 Pure hypercholesterolemia, unspecified; E55.9 Vitamin D deficiency, unspecified; H91.90 Unspecified hearing loss, unspecified ear; F41.9 Anxiety disorder, unspecified; Z98.890 Other specified postprocedural states
CPT/HCPCS: 45385; 88305; J2003; J2704

== ENCOUNTER → 2024-07-28 09:16 | Outpatient (BNV) | payer MEDICARE, SELFPAY | PROVIDERS: PCP Internal Medicine; Visit Provider Internal Medicine Gastroenterology | DX: Z12.11 Encounter for screening for malignant neoplasm of colon (principal); Z86.0100 Personal history of colon polyps, unspecified; D12.2 Benign neoplasm of ascending colon; K57.90 Diverticulosis of intestine, part unspecified, without perforation or abscess without bleeding | CPT/HCPCS: 45385 ==

== ENCOUNTER 2024-10-11 09:05 | Outpatient (AMB) | payer MEDICARE, SELFPAY ==
--- NOTE | 2024-10-11 09:14 | A.OFFPC_ITS ---
Vital Signs 10/11/24 09:15 Height 5 ft 6 in Weight 126 lb 6 oz BMI 20.4 BP 120/76 Blood Pressure Location Lt brachial Position Sitting Pulse 90 Pulse Source Pulse Oximeter Temp 97.3 F Temp Source Temporal Artery Scan Pulse Oximetry (%) 96 Oxygen Delivery Method Room Air Intake Visit Reasons: Annual Exam Intake Note: Patient is here today for a physical. Complaint of dry red garcia on arms Artist Model Required: No Pastoral Counselor: Not Required per policy Accompanied by: Self / Same As Patient Allergies No Known Allergies Allergy (Verified 10/11/24 09:49) Medication List - Last Reconciled 10/11/24 by Jose Santamaria MD calcium-vitamin D3-vitamin K 650 mg-12.5 mcg-40 mcg (Viactiv) tabs PO lorazepam 0.5 mg PO BEDTIME PRN 30 days magnesium 500 mg PO DAILY sj-liv-lsceg-calcium carb-K1 400 mcg-500 mg calcium-20 mcg (Women's 50 Plus Multivitamin) tabs PO Tobacco use date assessed: 10/11/24 Fall risk assessment: No Falls in past year Last assessed Fall Risk: 10/11/24 Dental Screening Dental Screen Date: 10/11/24 Did you have a dental visit in the last 12 months?: Yes Did you have a dental problem in the last 6 months where you did not have access to dental care?: No Was dental information given to patient?: Patient has dentist HPI Annual Exam HPI Details Patient comes in today for her annual physical examination States that she feels okay but has been breaking out in some reddish circular rash on both of her upper arms for the past couple of weeks now States that the rash do not itch or hurt She denies any headaches or dizziness Denies any chest pains, no SOB No nausea/vomiting, no abdominal pain No change in bowel habits noted Denies any acute urinary symptoms Needs her Lorazepam Rx refilled today She was not able to get her previously ordered labs done prior to her appointment today - states that she will try to get these done by the weekend She also had her repeat colonoscopy done back in July 2024 - had 5 polyps removed that came out as tubular adenomas on pathology and she was recommended to get a repeat colonoscopy in 3 years She has not had her mammogram done in a couple of years now and needs a new order for one Adds that 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 and she needs to see a new gynecology provider She also has not had BMD screening done in a few years now [facility] Medical History (Updated 10/11/24 @ 11:44 by Jose Santamaria MD) Primary osteoarthritis of left knee White coat syndrome without diagnosis of hypertension Anxiety Vitamin D deficiency Lumbar degenerative disc disease Pure hypercholesterolemia Surgical History (Updated 10/11/24 @ 09:23 by VLADIMIR Damian) History of colonoscopy Back pain with history of spinal surgery History of eye surgery History of surgery History of colonoscopy with polypectomy Neck pain with history of cervical spinal surgery History of microdiscectomy Family History Father No problems noted. Mother No problems noted. Other Substance abuse Social History Housing: House Alcohol intake: current Alcohol intake frequency: holidays/special occasions only Patient Tobacco Use Status: Former Tobacco user Cigarettes Per Day: 6 e-Cigarette/Vaping Use: Never Used Second Hand Smoke Exposure: Yes service: No Current occupational status: employed Cognitive needs: No Hearing needs: No Vision needs: Yes (Glasses) Questionnaire PHQ-9 Over the last 2 weeks, how often have you been bothered by any of the following problems? 1. Little interest or pleasure in doing things: not at all 2. Feeling down, depressed, or hopeless: not at all 3. Trouble falling or staying asleep, or sleeping too much: not at all 4. Feeling tired or having little energy: not at all 5. Poor appetite or overeating: not at all 6. Feeling bad about yourself - or that you are a failure or have let yourself or your family down: not at all 7. Trouble concentrating on things, such as reading the newspaper or watching television: not at all 8. Moving or speaking so slowly that other people could have noticed. Or the opposite - being so fidgety or restless that you have been moving around a lot more than usual: not at all 9. Thoughts that you would be better off or of hurting yourself in some way: not at all Total score: 0 Depression Screening Interpretation: Negative Depression Screening Done: Yes 91765 - PHQ-9 Billing: Yes Source: Developed by Drs. Nba Vasquez, Lore Christy, Toni Hinojosa and colleagues, with an educational cheryl from [employer]. Thrive Questionnaire Date Thrive assessed: 10/11/24 I am a: Patient What is your living situation today?: I have a steady place to live Within the past 12 months, did the food you bought not last and you didn't have the money to get more?: I choose not to answer this question Within the past 12 months, did you worry whether your food would run out before you got money to buy more?: I choose not to answer this question Do you have trouble paying for medicines?: No Do you have trouble getting transportation to medical appointments?: No Do you have trouble paying your heating and electricity bill?: No Do you have trouble taking care of your child, family member or friend?: No Do you have trouble with day-to-day activities such as bathing, preparing meals, shopping, managing finances, etc.?: No Are you currently unemployed and looking for a job?: No Are you interested in more education?: No Please select the resources that you would like help with: None Currently or been in a relationship where the following occur: I choose not to answer THRIVE Score: 0 AUDIT C Alcohol Use Questionnaire (AUDIT-C) 1. How often do you have a drink containing alcohol?: Monthly or less 2. How many drinks containing alcohol do you have on a typical day when you are drinking?: 1 or 2 3. How often do you have six or more drinks on one occasion?: Never Total Score: 1 Score Reviewed/Action Taken: Yes ERIC-7 AMB Questionnaire ERIC-7 Date ERIC - 7 assessed: 10/11/24 Feeling nervous, anxious, or on edge: 1 = Several days Not being able to stop or control worryin = Several days Worrying too much about different things: 1 = Several days Trouble relaxin = Several days Being so restless that it is hard to sit still: 1 = Several days Becoming easily annoyed or irritable: 1 = Several days Feeling afraid as if something awful might happen: 1 = Several days Total ERIC-7 score (0-4 normal; 5-9 mild; 10-14 moderate; 15-21 severe): 7 Source: Developed by Drs. Nba Vasquez, Lore Christy, Toni Hinojosa and colleagues, with an educational cheryl from [employer]. Review of Systems Const Denies chills, Denies fatigue, Denies fever(s), Denies headache(s) and Denies malaise Eyes Denies blurry vision, Denies change in vision, Denies irritation and Denies itchy eyes ENT Denies dysphagia, Denies dizziness, Denies otalgia, Denies headache(s), Denies nasal congestion, Denies neck pain, Denies odynophagia, Denies sinus pain and Denies sore throat Card Denies chest pain, Denies rapid heart rate, Denies irregular heart rhythm, Denies palpitations and Denies dyspnea Resp Denies chest congestion, Denies cough, Denies dyspnea and Denies wheezing GI Denies abdominal pain, Denies bloating, Denies constipation, Denies dysphagia, Denies heartburn, Denies diarrhea, Denies nausea, Denies odynophagia and Denies vomiting Denies hematuria, Denies urinary frequency, Denies dysuria, Denies urinary incontinence and Denies urinary urgency Musc Denies back pain, Reports arthralgias (in the left knee, on and off), Denies joint swelling, Denies muscle weakness and Denies neck pain Skin/Breast Denies breast pain, Denies breast mass, Denies change in pigmentation, Denies pruritus, Reports rash (scattered, over both upper arms) and Denies unusual bruising Neuro Denies dizziness, Denies headache(s) and Denies paresthesias Psych Reports anxiety (better controlled) and Denies depression Endo Denies fatigue and Denies palpitations Bakari/Lymph Denies easy bruising Aller/Immun Denies itchy eyes and Denies wheezing Physical exam (Primary Care) Vital Signs: Last Vital Signs Temp 97.3 F 10/11/24 09:15 Pulse 90 10/11/24 09:15 BP 120/76 10/11/24 09:15 Pulse Ox 96 10/11/24 09:15 Oxygen Delivery Method Room Air 10/11/24 09:15 BMI result Body Mass Index 20.4 Tobacco/Smoking Status: Tobacco use Status Tobacco use date assessed 10/11/24 10/11/24 09:24 Patient Tobacco Use Status Former Tobacco user 10/11/24 09:24 e-Cigarette/Vaping Use Never Used 10/11/24 09:24 PHQ-9: PHQ-9 Score PHQ-9: Total score 0 10/11/24 09:24 Depression Screening Interpretation: Negative Thrive Assessment: Date of Thrive Assessment Date Thrive assessed 10/11/24 10/11/24 09:24 Currently or been in a relationship where the following occur: I choose not to answer Const General: no acute distress, alert and awake Orientation/consciousness: patient oriented x3 HENMT Head: Yes normocephalic and Yes atraumatic Ears: external ears normal, TM's normal bilaterally and EAC's normal General nose exam: No nasal discharge present Face and sinus: Yes normal facial exam and Yes sinuses nontender Teeth and gingiva: dentition normal Throat: Yes posterior oropharynx normal and Yes tonsils normal (no TP congestion) Eyes Eyelids: Yes eyelids normal Conjunctivae: conjunctivae normal Pupils: Equal, round and reactive pupils present EOM: EOMs intact bilaterally Neck Neck: Yes no lymphadenopathy and Yes supple Thyroid: Thyroid normal Resp Auscultation: clear to auscultation bilaterally, no rales and no wheezes Cardio Rate: regular rate Rhythm: regular rhythm Heart sounds: no murmurs GI Palpation (GI): Soft to palpation, nontender and No hepatosplenomegaly present Auscultation: normal bowel sounds General: Yes no CVA tenderness Back/Spine/Pelvis Back: no CVA tenderness Thoracic/Lumbar Spine: No lumbar spinal tenderness Skin Other: (+) scattered multiple erythematous circular rash with central clearing over both upper arms Lesions: no lesions Neuro General: patient oriented x3, moves all extremities, no focal motor deficits and CN's II-XI intact bilaterally Cranial nerves: Yes Equal, round and reactive pupils present Cognition (Neuro): normal cognition Gait exam (Neuro): Normal gait present Extrem General: Yes no clubbing, cyanosis or edema Left lower extremity: knee Details: tenderness Location: of the medial joint line, of the lateral joint line and of the pre-patellar area Coding Level of Care Code Est Pt Prev Care >65y(17865) Diagnoses Annual physical exam Z00.00 Pure hypercholesterolemia E78.00 Elevated blood pressure reading R03.0 Vitamin D deficiency E55.9 Tinea corporis B35.4 Primary osteoarthritis of left knee M17.12 Degeneration of intervertebral disc of lumbar region with discogenic back pain M51.360 Disc-related pain type: discogenic back pain only Right lumbar radiculopathy M54.16 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 M47.812 Primary osteoarthritis of right hand M19.041 Osteoarthritis type: primary Anxiety F41.9 Breast cancer screening by mammogram Z12.31 Cervical cancer screening Z12.4 Osteoporosis screening Z13.820 Additional Codes PHQ-9 - 92880 - PHQ-9 Billing: Yes ([id number]) Assessment & Plan Assessment & Plan (1) Annual physical exam: Code(s): Z00.00 - Encounter for general adult medical examination without abnormal findings Category: Medical Plan: Check labs - patient is advised that her labs were ordered previously and she can just go and get them done at anytime soon She just had her repeat colonoscopy done in July 2024 (recommend repeat colonoscopy in 3 years due to 5 tubular adenoma lesions removed) She needs to have her yearly gynecology exam and pap smear updated (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) as well as her annual mammogram and her BMD for osteoporosis screening (2) Pure hypercholesterolemia: Code(s): E78.00 - Pure hypercholesterolemia, unspecified Category: Medical Plan: Reinforced low cholesterol diet Will see how her cholesterol levels are now when she gets her follow up labs done in a few days Her numbers were still higher than recommended when they were last checked in April 2024 although they have improved significantly from previous - total cholesterol was still at 206 mg/dl back then and LDL cholesterol was at 110 mg/dl (3) Elevated blood pressure reading: Code(s): R03.0 - Elevated blood-pressure reading, without diagnosis of hypertension Category: Medical Plan: Reinforced low sodium diet She appears to have classic WHITE COAT SYNDROME, as her blood pressure tends to be normal when she checks it at home just before coming in for her appointments although her blood pressure is actually good here in the office today at 120/76 mm Patient is advised to just continue monitoring her blood pressure regularly (4) Vitamin D deficiency: Code(s): E55.9 - Vitamin D deficiency, unspecified Category: Medical Plan: Continue OTC Vitamin D supplements daily Will recheck her Vitamin D level in a few months for follow up (5) Tinea corporis: Code(s): B35.4 - Tinea corporis Category: Medical Plan: Will start patient for now on topical Clotrimazole 1% cream to apply to the skin lesions on her upper arms bilaterally TID for the next 3 to 4 weeks She is advised to call if she does not note any significant improvement of these rash in 3 to 4 weeks and we may need to consider systemic antifungal Tx then (6) Primary osteoarthritis of left knee: Code(s): M17.12 - Unilateral primary osteoarthritis, left knee Category: Medical Plan: X-rays of the left knee done back in April 2024 revealed (+) [id number] medial as well as mild patellofemoral and lateral compartment osteoarthritis, with (+) small joint effusion Patient recalls that she injured her knee last year around February 2024 and her knee started bothering her then although her knee symptoms have subsided a lot since States that she currently wears a knee sleeve, especially when she goes walking, to help support her knee better She is advised that if her knee symptoms continue to progress, then she should consider seeing orthopedics for further recommendations but she hopes to avoid that as she states that she really does not want to go for any joint replacement sugery as much as possible (7) Lumbar degenerative disc disease: Comment: S/P lumbar spine surgery with Dr. Garcia in 07/2012 Code(s): M51.36 - Other intervertebral disc degeneration, lumbar region Category: Medical Qualifiers: Disc-related pain type: discogenic back pain only Qualified Code(s): M51.360 - Other intervertebral disc degeneration, lumbar region with discogenic back pain only Plan: Reinforced activity and weight lifting restrictions She was previously sent for a repeat lumbar spine MRI due to her increasing pain (right sciatica) and radiation of pain down her right leg but this was declined by insurance States that she has been seeing her chiropractor (Dr. 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: Code(s): M47.812 - Spondylosis without myelopathy or radiculopathy, cervical region Category: Medical Plan: Patient states that her neck pain has also been mostly manageable and she does not need any intervention(s) for her neck at this time (10) Osteoarthritis of right hand: Code(s): M19.041 - Primary osteoarthritis, right hand Category: Medical Qualifiers: Osteoarthritis type: primary Qualified Code(s): M19.041 - Primary osteoarthritis, right hand Plan: Right hand x-rays done in July 2021 revealed (+) OA changes in the right hand and fingers Follow up with orthopedics as scheduled (11) Anxiety: Code(s): F41.9 - Anxiety disorder, unspecified Category: Medical Plan: Continue Lorazepam 0.5 mg Q HS PRN - Rx refilled per request She was also on Bupropion XL 150 mg Q AM in the past but she took herself off the Rx when she felt that the medication was making her feel angry often - she reports no significant increase or worsening of her anxiety since coming off the Rx (12) Breast cancer screening by mammogram: Code(s): Z12.31 - Encounter for screening mammogram for malignant neoplasm of breast Category: Medical Plan: Patient states that she has not had her annual mammogram done last year - states that she normally gets them done at [facility] but as 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 (14) Osteoporosis screening: Code(s): Z13.820 - Encounter for screening for osteoporosis Category: Medical Plan: Patient recalls having her previous BMD done at [facility] but thinks that it has been a few years now since she had it done Will send her for BMD as well for osteoporosis screening - advised that she can also just have it done here at the [facility] together with her annual mammography Plan Follow up in 6 months Orders: Orders MM tomosynthesis screening BI Today Z12.31 - Encounter for screening mammogram for malignant neoplasm of breast XR DEXA axial skeleton Today Z78.0 - Asymptomatic menopausal state Referrals IRRIGATION SYSTEM INSTALLER Referral Z12.4 - Encounter for screening for malignant neoplasm of cervix Medications: New clotrimazole 1% 1 appl topical TID 45 grams 1RF Refilled lorazepam 0.5 mg PO BEDTIME 30 days PRN 30 tabs 1RF anxiety F41.9 - Anxiety disorder, unspecified
[2024-10-11 09:15] VITALS: BP 120/76; PULSE 90; TEMP 36.3; O2SAT 96; BMI 20.4
--- OUTSIDE RECORDS SUMMARY | 2024-10-11 09:59 | XMS_ITS | Clinical Summary ---
Author Organization [facility] Address [address] [place] [address] Care Team Providers Care [employer] English Teacher Name Role Phone Jose Santamaria MD Primary Care Provider [phone] Social History Tobacco Use Types Packs/Day Years Used Date Smoking Tobacco: Never Assessed Sex and Gender Information Value Date Recorded Sex Assigned at Not on file Gender Identity Not on file Sexual Orientation Not on file Plan of Treatment Health Maintenance Due Date Last Done Comments Hepatitis C Screening 1960 COVID-19 Vaccine (#1) 1959 Depression Screening 1971 Preventative Health Evaluation 1977 DTap / Tdap / Td (1 - Tdap) 1978 Cervical Cancer Screening (P ap Smear) 01/05/1980 Colon Cancer Screening (Colonoscopy) 01/05/2004 Breast Cancer Screening (Mammogram) 2009 Shingrix-Zoster Vaccine (1 of 2) 2009 Fall Risk Assessment 01/05/2024 Osteoporosis Screening (DEXA Scan) 01/05/2024 Pneumococcal Vaccine (1 of 1 - PCV) 01/05/2024 Influenza Vaccine (#1) 2024 RSV Adult > 60+ Yrs or Pregn ant (1 - 1-dose 75+ series) 2034 Hepatitis B Vaccines Aged Out No long er eligible based on patient's age to complete this topic Pneumococcal Vaccine Aged Out No long er eligible based on patient's age to complete this topic RSV Ped < 20 months Aged Out No longe r eligible based on patient's age to complete this topic Care Teams [employer] English Teacher Relationship Specialty Start Date End Date Jose Santamaria MD [address] [place] [address] [place] [id number] PCP - General Internal Medicine 01/30/20
== END 2024-10-11 09:58 | disposition home or self-care (01) ==
PROVIDERS: PCP Internal Medicine; Visit Provider Internal Medicine
DX: Z00.00 Encounter for general adult medical examination without abnormal findings (principal); E78.00 Pure hypercholesterolemia, unspecified; R03.0 Elevated blood-pressure reading, without diagnosis of hypertension; E55.9 Vitamin D deficiency, unspecified; B35.4 Tinea corporis; M17.12 Unilateral primary osteoarthritis, left knee; M51.360 Other intervertebral disc degeneration, lumbar region with discogenic back pain only; M54.16 Radiculopathy, lumbar region; M47.812 Spondylosis without myelopathy or radiculopathy, cervical region; M19.041 Primary osteoarthritis, right hand; F41.9 Anxiety disorder, unspecified; Z12.31 Encounter for screening mammogram for malignant neoplasm of breast

== ENCOUNTER → 2024-10-11 09:05 | Outpatient (BNVA) | payer MEDICARE, SELFPAY | PROVIDERS: PCP Internal Medicine; Visit Provider Internal Medicine | DX: Z00.00 Encounter for general adult medical examination without abnormal findings (principal); E78.00 Pure hypercholesterolemia, unspecified; R03.0 Elevated blood-pressure reading, without diagnosis of hypertension; E55.9 Vitamin D deficiency, unspecified; B35.4 Tinea corporis; M17.12 Unilateral primary osteoarthritis, left knee; M51.360 Other intervertebral disc degeneration, lumbar region with discogenic back pain only; M54.16 Radiculopathy, lumbar region; M47.812 Spondylosis without myelopathy or radiculopathy, cervical region; M19.041 Primary osteoarthritis, right hand; F41.9 Anxiety disorder, unspecified | CPT/HCPCS: 96127; 99397 ==

== ENCOUNTER 2024-10-14 08:38 | Outpatient (REF) | payer MEDICARE, SELFPAY ==
--- OUTSIDE RECORDS SUMMARY | 2024-10-14 08:41 | XMS_ITS | Clinical Summary ---
Author Organization [facility] Address [address] [place] [address] Care Team Providers Care Circuit Judge Name Role Phone Jose Santamaria MD Primary Care Provider [phone]- [phone] Social History Tobacco Use Types Packs/Day Years [...] age to complete this topic Care Teams Circuit Judge Relationship Specialty Start Date End Date Jose Santamaria MD [address] [place] [address] [place] [id number] PCP - General Internal Medicine 01/30/20
[2024-10-14 08:56] LABS: MANUAL DIFF FLAG NO
[2024-10-14 09:27] LABS: Basophils Absolute Auto 0.1 X10*3/uL (0.0-0.2); Basophils Percent Auto 0.6 % (0-2); Eosinophils Absolute Auto 0.1 X10*3/uL (0.0-0.4); Eosinophils Percent Auto 1.5 % (0-4); Hemoglobin 13.2 g/dl (12.0-16.0); Imm Gran Abs Auto 0.03 X10*3/uL (0.00-0.03); Imm Gran Pct Auto 0.4 % (0.0-0.4); Lymphocytes Absolute Auto 2.8 X10*3/uL (1.2-4.9); Lymphocytes Percent Auto 33.2 % (20-40); Mean Corpuscular HGB Conc 32.2 g/dl (31.0-35.0); Mean Corpuscular Hemoglobin 31.8 pg (27.0-33.0); Mean Corpuscular Volume 98.8 fL (80.0-98.0); Mean Platelet Volume 8.9 fL (9.4-12.3); Monocytes Absolute Auto 0.5 X10*3/uL (0.1-1.2); Monocytes Percent Auto 5.4 % (2-11); Neutrophils Percent Auto 58.9 % (45-73); Platelet Count 414 X10*3/uL (160-400); Red Blood Count 4.15 X10*6/uL (4.20-5.50); Red Cell Distribution Width 13.2 % (11.0-16.0); White Blood Count 8.4 X10*3/uL (4.8-10.8)
[2024-10-14 09:44] LABS: Appearance Urine Turbid; Color Urine Yellow; Glucose Urine UA Negative (Negative); Leukocyte Esterase Urine Negative (Negative); Nitrite Urine Negative (Negative); PH 8.5 (5.0-9.0); Urine Blood Negative (Negative); Urine Ketones Negative (Negative); Urine Protein Negative (Neg-Trace)
[2024-10-14 11:17] LABS: Estimated Average Glucose 117 mg/dL; Hemoglobin A1C 136.7306 umol/L; Hemoglobin A1c % 5.7 % (<6.0); Total Hemoglobin (HGBA1C) 3494.2248 umol/L
[2024-10-14 11:24] LABS: Alanine Aminotransferase 16 U/L (0-31); Albumin Level 4.5 g/dL (3.5-5.0); Alkaline Phosphatase 90 U/L (39-117); Anion Gap 14 (12-20); Aspartate Amino Transferase 24 U/L (5-31); Bilirubin Total 0.5 mg/dL (0.0-1.0); Blood Urea Nitrogen 18 mg/dL (9-16); Calcium 10.1 mg/dL (8.4-10.2); Carbon Dioxide 27 mmol/L (22-29); Chloride 106 mmol/L (96-108); Cholesterol 190 mg/dL (<200); Estimated Glomerular Filt Rate > 60; Glucose Fasting 107 mg/dL (60-99); HDL Cholesterol 74 mg/dL (>40); LDL Cholesterol Calculated 98 mg/dL (<100); Potassium 4.6 mmol/L (3.3-5.1); Sodium 142 mmol/L (135-145); Total Protein 7.7 g/dL (6.5-8.0); Triglycerides 92 mg/dL (<150)
[2024-10-14 11:44] LABS: TSH reflex Free T4 0.89 uIU/mL (0.32-4.0); Vitamin D 25-OH Total 56.1 ng/mL (>30)
== END 2024-10-14 08:39 | disposition home or self-care (01) ==
LOC: HO.LAB 08:38
PROVIDERS: PCP Internal Medicine; Visit Provider Internal Medicine
DX: Z00.00 Encounter for general adult medical examination without abnormal findings (principal); E78.00 Pure hypercholesterolemia, unspecified; R73.01 Impaired fasting glucose; E55.9 Vitamin D deficiency, unspecified; D64.9 Anemia, unspecified; R30.0 Dysuria
CPT/HCPCS: 36415; 80053; 80061; 81003; 82306; 83036; 84443; 85025

== ENCOUNTER 2025-04-10 09:27 | Outpatient (AMB) | payer MEDICARE, SELFPAY ==
[2025-04-10 09:31] VITALS: BP 144/82; PULSE 69; TEMP 36.2; O2SAT 98; BMI 19.7
--- NOTE | 2025-04-10 09:31 | MHC.PC.OV ---
Vital Signs 04/10/25 09:31 Height 5 ft 6 in Weight 122 lb 2 oz BMI 19.7 BP 144/82 H Blood Pressure Location Lt brachial Position Sitting Pulse 69 Pulse Source Pulse Oximeter Temp 97.1 F Temp Source Temporal Artery Scan Pulse Oximetry (%) 98 Oxygen Delivery Method Room Air Intake Visit Reasons: 6mth f/u Allergies No Known Allergies Allergy (Verified 04/10/25 09:57) Medication List - Last Reconciled 04/10/25 by Jose Santamaria MD calcium-vitamin D3-vitamin K 650 mg-12.5 mcg-40 mcg (Viactiv) tabs PO clotrimazole 1% 1 appl topical TID latanoprost 0.005% 1 drp ophthalmic (eye) BEDTIME lorazepam 0.5 mg PO BEDTIME PRN 30 days magnesium 500 mg PO DAILY uv-mrg-tjgws-calcium carb-K1 400 mcg-500 mg calcium-20 mcg (Women's 50 Plus Multivitamin) tabs PO timolol maleate 0.5% 1 drp ophthalmic-Right QAM Tobacco use date assessed: 04/10/25 Fall risk assessment: No Falls in past year Last assessed Fall Risk: 04/10/25 Dental Screening Dental Screen Date: 04/10/25 Did you have a dental visit in the last 12 months?: Yes Did you have a dental problem in the last 6 months where you did not have access to dental care?: No Was dental information given to patient?: Patient has dentist HPI 6mth f/u HPI Details Patient comes in today for her follow up visit States that she currently feels okay She lost her daughter back in October 2024 and is still adjusting to this - states that her Lorazepam Rx, which she takes only as needed, has helped a lot States that her left knee is also doing well and has been feeling much better since she had PRP injection into her knee through [facility] in [place] States that she can now walk and run without experiencing excruciating knee pain She denies any headaches or dizziness Denies any chest pains, no SOB No nausea/vomiting, no abdominal pain No change in bowel habits noted She would also like to know how her labs done back in October 2024 came out [facility] Medical History Primary osteoarthritis of left knee White coat syndrome without diagnosis of hypertension Anxiety Vitamin D deficiency Lumbar degenerative disc disease Pure hypercholesterolemia Surgical History History of colonoscopy Back pain with history of spinal surgery History of eye surgery History of surgery History of colonoscopy with polypectomy Neck pain with history of cervical spinal surgery History of microdiscectomy Family History (Updated 04/10/25 @ 09:35 by Heather Prater TRIGONOMETRY TEACHER) Father No problems noted. Mother No problems noted. Daughter Heart attack Other Substance abuse Social History Housing: House Alcohol intake: current Alcohol intake frequency: holidays/special occasions only Patient Tobacco Use Status: Current everyday Tobacco user Cigarettes Per Day: 3 e-Cigarette/Vaping Use: Never Used Second Hand Smoke Exposure: Yes service: No Current occupational status: employed Cognitive needs: No Hearing needs: No Vision needs: Yes (Glasses) Questionnaire PHQ-9 Over the last 2 weeks, how often have you been bothered by any of the following problems? 1. Little interest or pleasure in doing things: not at all 2. Feeling down, depressed, or hopeless: not at all 3. Trouble falling or staying asleep, or sleeping too much: several days 4. Feeling tired or having little energy: not at all 5. Poor appetite or overeating: not at all 6. Feeling bad about yourself - or that you are a failure or have let yourself or your family down: not at all 7. Trouble concentrating on things, such as reading the newspaper or watching television: not at all 8. Moving or speaking so slowly that other people could have noticed. Or the opposite - being so fidgety or restless that you have been moving around a lot more than usual: not at all 9. Thoughts that you would be better off or of hurting yourself in some way: not at all Total score: 1 Depression Screening Interpretation: Negative Depression Screening Done: Yes 66725 - PHQ-9 Billing: Yes Source: Developed by Drs. Nba Vasquez, Lore Christy, Toni Hinojosa and colleagues, with an educational cheryl from [employer]. Thrive Questionnaire Date Thrive assessed: 10/11/24 I am a: Patient What is your living situation today?: I have a steady place to live Within the past 12 months, did the food you bought not last and you didn't have the money to get more?: I choose not to answer this question Within the past 12 months, did you worry whether your food would run out before you got money to buy more?: I choose not to answer this question Do you have trouble paying for medicines?: No Do you have trouble getting transportation to medical appointments?: No Do you have trouble paying your heating and electricity bill?: No Do you have trouble taking care of your child, family member or friend?: No Do you have trouble with day-to-day activities such as bathing, preparing meals, shopping, managing finances, etc.?: No Are you currently unemployed and looking for a job?: No Are you interested in more education?: No Please select the resources that you would like help with: None Currently or been in a relationship where the following occur: I choose not to answer THRIVE Score: 0 AUDIT C Alcohol Use Questionnaire (AUDIT-C) 1. How often do you have a drink containing alcohol?: Monthly or less 2. How many drinks containing alcohol do you have on a typical day when you are drinking?: 1 or 2 3. How often do you have six or more drinks on one occasion?: Never Total Score: 1 Score Reviewed/Action Taken: Yes ERIC-7 AMB Questionnaire ERIC-7 Date ERIC - 7 assessed: 10/11/24 Feeling nervous, anxious, or on edge: 1 = Several days Not being able to stop or control worryin = Several days Worrying too much about different things: 1 = Several days Trouble relaxin = Several days Being so restless that it is hard to sit still: 1 = Several days Becoming easily annoyed or irritable: 1 = Several days Feeling afraid as if something awful might happen: 1 = Several days Total ERIC-7 score (0-4 normal; 5-9 mild; 10-14 moderate; 15-21 severe): 7 Source: Developed by Drs. Nba Vasquez, Lore Christy, Toni Hinojosa and colleagues, with an educational cheryl from [employer]. Review of Systems Const Denies chills, Denies fatigue, Denies fever(s) and Denies headache(s) ENT Denies dysphagia, Denies dizziness, Denies otalgia, Denies headache(s), Denies neck pain, Denies odynophagia and Denies sore throat Card Denies chest pain, Denies rapid heart rate, Denies irregular heart rhythm, Denies palpitations and Denies dyspnea Resp Denies chest congestion, Denies cough and Denies dyspnea GI Denies abdominal pain, Denies constipation, Denies dysphagia, Denies heartburn, Denies diarrhea, Denies nausea, Denies odynophagia and Denies vomiting Denies difficulty voiding, Denies nocturia, Denies dysuria and Denies urinary urgency Musc Denies back pain, Reports arthralgias (in the left knee, on and off but feeling better after her PRP injection) and Denies neck pain Skin/Breast Denies rash Neuro Denies dizziness, Denies headache(s) and Denies paresthesias Psych Reports anxiety (better controlled) and Denies depression Endo Denies fatigue and Denies palpitations Bakari/Lymph Denies easy bruising Physical exam (Primary Care) Vital Signs: Last Vital Signs Temp 97.1 F 04/10/25 09:31 Pulse 69 04/10/25 09:31 BP 144/82 H 04/10/25 09:31 Pulse Ox 98 04/10/25 09:31 Oxygen Delivery Method Room Air 04/10/25 09:31 BMI result Body Mass Index 19.7 Tobacco/Smoking Status: Tobacco use Status Tobacco use date assessed 04/10/25 04/10/25 09:36 Patient Tobacco Use Status Current everyday Tobacco 04/10/25 09:36 e-Cigarette/Vaping Use Never Used 04/10/25 09:36 PHQ-9: PHQ-9 Score PHQ-9: Total score 0 04/10/25 09:36 Depression Screening Interpretation: Negative Thrive Assessment: Date of Thrive Assessment Date Thrive assessed 10/11/24 04/10/25 09:36 Currently or been in a relationship where the following occur: I choose not to answer Const General: no acute distress and alert HENMT Ears: TM's normal bilaterally and EAC's normal Throat: Yes posterior oropharynx normal and Yes tonsils normal (no TP congestion) Neck Neck: Yes supple and No lymphadenopathy Thyroid: Thyroid normal Resp Auscultation: clear to auscultation bilaterally, no rales and no wheezes Cardio Rate: regular rate Rhythm: regular rhythm Heart sounds: no murmurs GI Palpation (GI): Soft to palpation and nontender Auscultation: normal bowel sounds General: Yes no CVA tenderness Back/Spine/Pelvis Back: no CVA tenderness Thoracic/Lumbar Spine: No lumbar spinal tenderness Skin Rashes: no rashes Extrem General: Yes no clubbing, cyanosis or edema Left lower extremity: knee (but she still wears a protective sleeve over her knee for support) Details: no tenderness and no swelling Results Reviewed Results Reviewed: Laboratory Tests 10/14/24 10/14/24 08:53 08:54 WBC 8.4 Hgb 13.2 Hct 41.0 Plt Count 414 H Sodium 142 Potassium 4.6 Creatinine 0.69 Estimated GFR > 60 Fasting Glucose 107 H Hemoglobin A1c % 5.7 Calcium 10.1 AST 24 ALT 16 Triglycerides 92 Cholesterol 190 LDL Cholesterol, Calc 98 HDL Cholesterol 74 25-OH Vitamin D Total 56.1 TSH 0.89 Ur Specific [place] 1.020 Urine Protein Negative Urine Glucose (UA) Negative Urine Blood Negative Urine Nitrite Negative Ur Leukocyte Esterase Negative Coding Level of Care Code Est Pt Level 4 (25090) Diagnoses Pure hypercholesterolemia E78.00 Elevated blood pressure reading R03.0 Vitamin D deficiency E55.9 Primary osteoarthritis of left knee M17.12 Degeneration of intervertebral disc of lumbar region with discogenic back pain M51.360 Disc-related pain type: discogenic back pain only Right lumbar radiculopathy M54.16 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 M47.812 Primary osteoarthritis of right hand M19.041 Osteoarthritis type: primary Anxiety F41.9 Additional Codes PHQ-9 - 95052 - PHQ-9 Billing: Yes ([id number]) Assessment & Plan Assessment & Plan (1) Pure hypercholesterolemia: Code(s): E78.00 - Pure hypercholesterolemia, unspecified Category: Medical Plan: Results of her labs done back in October 2024 reviewed and discussed with patient - have advised her that her cholesterol levels have improved significantly from previous Reinforced low cholesterol diet Will have patient recheck her labs and fasting lipids in 6 months for follow up (2) Elevated blood pressure reading: Code(s): R03.0 - Elevated blood-pressure reading, without diagnosis of hypertension Category: Medical Plan: Reinforced low sodium diet She appears to have classic WHITE COAT SYNDROME, as her blood pressure tends to be normal when she checks it at home just before coming in for her appointments Patient is advised to just continue monitoring her blood pressure regularly (3) Vitamin D deficiency: Code(s): E55.9 - Vitamin D deficiency, unspecified Category: Medical Plan: Corrected - continue OTC Vitamin D supplements daily (4) Primary osteoarthritis of left knee: Code(s): M17.12 - Unilateral primary osteoarthritis, left knee Category: Medical Plan: X-rays of the left knee done back in April 2024 revealed (+) [id number]-il-[id number] medial as well as mild patellofemoral and lateral compartment osteoarthritis, with (+) small joint effusion Patient recalls that she injured her knee last year around February 2024 and her knee started bothering her then although her knee symptoms have subsided a lot since State still does not want to go for any joint (replacement sugery) as much as possible States that she recently had PRP injection into her knee through a company called [employer] in [place] and her knee has been feeling a lot better since (5) Lumbar degenerative disc disease: Comment: S/P lumbar spine surgery with Dr. Garcia in 07/2012 Code(s): M51.36 - Other intervertebral disc degeneration, lumbar region Category: Medical Qualifiers: Disc-related pain type: discogenic back pain only Qualified Code(s): M51.360 - Other intervertebral disc degeneration, lumbar region with discogenic back pain only Plan: Reinforced activity and weight lifting restrictions She was previously sent for a repeat lumbar spine MRI due to her increasing pain (right sciatica) and radiation of pain down her right leg but this was declined by insurance States that she has been seeing her chiropractor (Dr. 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: Code(s): M47.812 - Spondylosis without myelopathy or radiculopathy, cervical region Category: Medical Plan: Patient states that her neck pain has also been mostly manageable and she does not need any intervention(s) for her neck at this time (8) Osteoarthritis of right hand: Code(s): M19.041 - Primary osteoarthritis, right hand Category: Medical Qualifiers: Osteoarthritis type: primary Qualified Code(s): M19.041 - Primary osteoarthritis, right hand Plan: Right hand x-rays done in July 2021 revealed (+) OA changes in the right hand and fingers Follow up with orthopedics as scheduled (9) Anxiety: Code(s): F41.9 - Anxiety disorder, unspecified Category: Medical Plan: Continue Lorazepam 0.5 mg Q HS PRN She reportedly lost her daughter (who ) in October 2024 and is still adjusting to this but states that her Lorazepam has helped a lot She was also on Bupropion XL 150 mg Q AM in the past but she took herself off the Rx when she felt that the medication was making her feel angry often - she reports no significant increase or worsening of her anxiety since coming off the Rx Plan To return as scheduled in October 2025 for her annual physical examination Patient is reminded to get her labs done BEFORE she comes in for her appointment next year Orders: Orders Complete Blood Count Auto Diff 10/06/25 D64.9 - Anemia, unspecified, Z00.00 - Encounter for general adult medical examination without abnormal findings Comprehensive [place]. Panel Fast 10/06/25 E78.00 - Pure hypercholesterolemia, unspecified, Z00.00 - Encounter for general adult medical examination without abnormal findings TSH reflex Free T4 10/06/25 E78.00 - Pure hypercholesterolemia, unspecified, Z00.00 - Encounter for general adult medical examination without abnormal findings Vitamin D 25-OH Total 10/06/25 E55.9 - Vitamin D deficiency, unspecified, Z00.00 - Encounter for general adult medical examination without abnormal findings Lipid Panel 10/06/25 E78.00 - Pure hypercholesterolemia, unspecified, Z00.00 - Encounter for general adult medical examination without abnormal findings UA CC w/rflx Micro + Cult 10/06/25 R30.0 - Dysuria, Z00.00 - Encounter for general adult medical examination without abnormal findings
--- OUTSIDE RECORDS SUMMARY | 2025-04-10 10:04 | XMS_ITS | Clinical Summary ---
Author Organization [facility] Address [address] [place] [address] Care Team Providers Care Harness Worker Name Role Phone Jose Santamaria MD Primary Care Provider [phone] Social History Tobacco Use Types Packs/Day Years [...] Tdap / Td (1 - Tdap) 1978 Colon Cancer Screening (Colonoscopy) 01/05/2004 Breast Cancer Screening (Mammogram) 2009 Shingrix-Zoster Vaccine (1 of 2) 2009 Fall Risk Assessment 01/05/2024 Osteoporosis Screening (DEXA Scan) 01/05/2024 Pneumococcal Vaccine (1 of 1 - PCV) 01/05/2024 Influenza Vaccine (#1) 2025 RSV Adult > 60+ Yrs or Pregn ant (1 - 1-dose 75+ series) 2034 Hepatitis B Vaccines Aged Out No long er eligible based on patient's age to complete this topic RSV Ped < 20 months Aged Out No longe r eligible based on patient's age to complete this topic Care Teams Harness Worker Relationship Specialty Start Date End Date Jose Santamaria MD [address] [place] [address] [place] [id number] PCP - General Internal Medicine 01/30/20
== END 2025-04-10 10:10 | disposition home or self-care (01) ==
LOC: HO.HMCH 09:28
PROVIDERS: PCP Internal Medicine; Visit Provider Internal Medicine
DX: E78.00 Pure hypercholesterolemia, unspecified (principal); R03.0 Elevated blood-pressure reading, without diagnosis of hypertension; E55.9 Vitamin D deficiency, unspecified; M17.12 Unilateral primary osteoarthritis, left knee; M51.360 Other intervertebral disc degeneration, lumbar region with discogenic back pain only; M54.16 Radiculopathy, lumbar region; M47.812 Spondylosis without myelopathy or radiculopathy, cervical region; M19.041 Primary osteoarthritis, right hand; F41.9 Anxiety disorder, unspecified

== ENCOUNTER → 2025-04-10 09:27 | Outpatient (BNVA) | payer MEDICARE, SELFPAY | PROVIDERS: PCP Internal Medicine; Visit Provider Internal Medicine | DX: R03.0 Elevated blood-pressure reading, without diagnosis of hypertension (principal); E78.00 Pure hypercholesterolemia, unspecified; E55.9 Vitamin D deficiency, unspecified; M17.12 Unilateral primary osteoarthritis, left knee; M51.360 Other intervertebral disc degeneration, lumbar region with discogenic back pain only; M54.16 Radiculopathy, lumbar region; M47.812 Spondylosis without myelopathy or radiculopathy, cervical region; M19.041 Primary osteoarthritis, right hand; F41.9 Anxiety disorder, unspecified | CPT/HCPCS: 96127; 99212 ==